=== PATIENT | female | born 1950 | race Caucasian/White ===

== ENCOUNTER 2018-11-10 07:15 | Observation (INO) | payer MEDICARE ==
[2018-11-10] MEDS ORDERED: Aspirin Chewable 81 MG TAB ONE (07:32)
[2018-11-10] MEDS ORDERED: Lidocaine 1% (PF) 30 ML VIAL ONE (07:37)
[2018-11-10] MEDS ORDERED: Heparin 10,000 UNITS/1 ML VIAL ONE (07:37)
[2018-11-10 07:41] LABS: #Basophils 0.1 thou/uL (0.0-0.2); #Eosinphils 0.1 thou/uL (0.0-0.7); #Lymphocytes 0.3 thou/uL (1.20-3.40); #Monocytes 0.3 thou/uL (0.11-0.59); #Neutrophils 3.9 thou/uL (1.40-6.50); %Basophils 1.8 % (0.0-1.0); %Eosinophils 1.2 % (0.0-10.0); %Lymphocytes 5.6 % (21.0-51.0); %Monocytes 6.5 % (0.0-10.0); Hemoglobin 12.7 g/dL (12.0-16.0); Mean Corpuscular HGB CONC 31.7 g/dL (32.0-36.0); Mean Corpuscular Hemoglobin 28.2 pg (27.0-31.0); Mean Corpuscular Volume 88.8 fL (78.0-98.0); Mean Platelet Volume 9.2 fL (7.4-10.4); Platelet Count 135 thou/uL (130-400); RBC Distribution Width 14.3 % (11.5-14.5); Red Blood Cell (RBC) Count 4.52 mill/uL (4.20-5.40); White Blood Cell (WBC) Count 4.6 thou/uL (4.8-10.8)
--- NOTE | 2018-11-10 07:52 | RAD ---
PORTABLE CHEST 1 VIEW: DATE: 11/10/2018. TIME: 7:37 a.m. HISTORY: Chest pain. FINDINGS: The heart size is borderline. No focal areas of consolidation, pneumothoraces, or large effusions ar e seen. There is no evidence of zenon pulmonary edema. POS: [facility]
[2018-11-10 08:05] LABS: ALT (SGPT) 41 U/L (8-55); AST (SGOT) 64 U/L (5-34); Albumin 3.9 g/dL (3.4-4.8); Alkaline Phosphatase 134 U/L (40-150); Anion Gap 12 mmol/L (10-20); BUN (Urea Nitrogen) 25 mg/dL (9.8-20.1); Bilirubin, Total 0.7 mg/dL (0.2-1.2); CK (CPK) 90 U/L (29-168); Calc. Creatinine Clearance 0 mL/min (70-130); Carbon Dioxide 29 mmol/L (23-31); Chloride 99 mmol/L (98-107); Estimated GFR-MDRD 65; Globulin 2.8 g/dL (2.4-3.5); Glucose 84 mg/dL (80-115); Potassium 3.3 mmol/L (3.5-5.1); Protein, Total 6.7 g/dL (6.0-8.3); Sodium 137 mmol/L (136-145)
[2018-11-10] MEDS ORDERED: Fentanyl 100 MCG/2 ML VIAL ONE (08:13)
[2018-11-10] MEDS ORDERED: Midazolam HCl 2 mg/2 ml Vial ONE (08:13)
[2018-11-10 08:25] LABS: CKMB 2.3 ng/mL (0-6.6)
[2018-11-10] MEDS ORDERED: Nitroglycerin 0.4 MG TAB (25 Tab Bottle) SL PRN (08:35)
[2018-11-10] MEDS ORDERED: Sodium Chloride 0.9% 200 ML IV PRN (08:35)
[2018-11-10] MEDS ORDERED: Sodium Chloride 0.9% 1,000 ML IV SCH (08:45)
[2018-11-10] MEDS ORDERED: Iopamidol 370 76% 100 ML VIAL ONE (09:33)
[2018-11-10 10:13] VITALS: BMI 25.5
[2018-11-10] MEDS: Acetaminophen/Codeine 30-300mg Tablet PO PRN ×3 (10:30→23:15)
--- NOTE | 2018-11-10 10:51 | HP ---
CHIEF COMPLAINT: Chest pain. HISTORY OF PRESENT ILLNESS: Ms. Fernandez is a pleasant 68-year-old white female, who comes to the hospital for chest pain. She has been having chest pain since Wednesday of this week, today is . She noticed that the pain was worse, so she decided to come in. An EKG was done and was found that she had some suggestion of ST elevation in the anterior leads with some reciprocal changes, so concern was for STEMI, so she was brought to the catheterization lab for further evaluation, where she was found to have branching disease but nothing to explain STEMI. She does have a 33 mmHg gradient across her aortic valve. On further questioning, she tells me that she has been having a cough, which had been dry. She spiked a fever two days ago to 102.1. They were concerned about her having pneumonia and that was her main concern. She has been following with Dr. Solomon at [facility] for what appears to be a valve issue, but she is not sure what her valve issue is. On my evaluation, she is pain free. PAST MEDICAL HISTORY: 1. Depression. 2. Valve condition, unclear at this time. 3. Hypertension. 4. Anxiety and depression. 5. Chronic back pain. PAST SURGICAL HISTORY: 1. Bilateral knee surgeries. 2. Right shoulder surgery. 3. Back surgery x3. 4. Bilateral eye surgery. 5. Gastric bypass. She lost about 130 pounds about 7 years ago. ALLERGIES: MORPHINE MAKES HER NAUSEATED. OUTPATIENT MEDICATIONS: Include; 1. Carvedilol 12.5 mg b.i.d. 2. Prozac 40 mg twice a day. 3. Gabapentin. 4. Tylenol 300/30 as needed for pain. SOCIAL HISTORY: Former smoker, quit about 10 years ago. Social alcohol use. No drug use. FAMILY HISTORY: Noncontributory. REVIEW OF SYSTEMS: A 12-point review of systems was done and was found to be negative unless stated in the history of present illness. PHYSICAL EXAMINATION: VITAL SIGNS: Temperature 97.2, pulse 54, respiratory rate 16, and saturating 94% on 2 L nasal cannula, and blood pressure 116/62. GENERAL: Awake, alert, and oriented x3, no distress. HEENT: Normocephalic and atraumatic. NECK: Supple. LUNGS: Clear. CARDIOVASCULAR: S1 and S2. There is a grade 3/6 systolic murmur at the right upper sternal border. ABDOMEN: Soft. EXTREMITIES: No edema. SKIN: Warm and dry. LABORATORY DATA: Laboratory work was reviewed. CBC with a white count of 4.6, hemoglobin of 12, hematocrit 40, platelet count of 135. Chemistry with a sodium 137, potassium is 3.3, BUN 25, creatinine 0.87, GFR of 65. CK-MB is 2.3, troponin I was 0.135. Albumin of 3.9. DIAGNOSTIC DATA: Chest x-ray was reviewed. No infiltrates. ASSESSMENT AND PLAN: 1. Chest pain. 2. Fever, likely upper respiratory infection. 3. Aortic stenosis by physical exam and with a gradient on heart catheterization. 4. 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 PLAN: 1. Heart catheterization revealed significant disease, but very small vessels ostial disease in the intermediate ramus, not amenable to catheter based interventions too small of an artery to submit her for bypass surgeries just for that. Would treat medically for now. 2. She did have a gradient on her aortic valve about 33 mmHg. Will get an echocardiogram to assess valve better this would not make her candidate for a valve replacement just yet, but this may be in her future. She is already being followed for this according to her. She is not sure which valve it was. 3. Most likely she is having some sort of upper respiratory infection. Chest x-ray was negative for infiltrate. She may be having a bronchitis. We will start antibiotics. Will consult [facility]. 4. We will keep her on home regimen of medications. 5. Full code. 6. Disposition, pending clinical evolution. 7. Likely home tomorrow. Job ID: [id number]
[2018-11-10 16:30] LABS: Bilirubin Negative (Negative); Blood, Urine Negative (Negative); Clarity CLEAR (Clear); Glucose, Urine (Dipstick) Negative (Negative); Leukocyte Negative (Negative); Nitrite Negative (Negative); Protein, Urine (Dipstick) Negative (Neg-Trace); Urobilinogen 0.2 mg/dL (0.2-1.0); pH, Urine 5.5 (5.0-9.0)
[2018-11-10 16:31] LABS: Bacteria/HPF None Seen HPF (None Seen); Hyaline Casts/LPF 4-6 HYALINE CAST LPF (0-3 Hyaline); Pathc Cast-AUWi Flag 1.36 (0-2.49); RBC/HPF 0-3 HPF (0-3)
[2018-11-10 16:32] LABS: Renal Epithelial None Seen HPF (0-3); Specific Gravity, Urine 1.047 (1.002-1.036); Transitional Epithelial NONE SEEN HPF (0-3)
[2018-11-10 16:34] LABS: Urine Culture Reflex No No
[2018-11-10] MEDS: Carvedilol 6.25 MG TAB PO SCH (17:17)
[2018-11-10] MEDS ORDERED: Atorvastatin Calcium 10 MG TAB PO SCH (21:00)
[2018-11-10] MEDS: Amoxicillin/Potassium Clav 875 MG TAB PO SCH (21:00)
[2018-11-10] MEDS: Oseltamivir 75 MG CAP PO SCH (21:00)
[2018-11-10] MEDS: Acetaminophen 325 MG TAB PO PRN (21:00)
[2018-11-11] MEDS: Acetaminophen 325 MG TAB PO PRN (03:53)
[2018-11-11 05:15] LABS: #Lymphocytes 0.6 thou/uL (1.20-3.40); #Monocytes 0.7 thou/uL (0.11-0.59); #Neutrophils 6.2 thou/uL (1.40-6.50); %Eosinophils 0.2 % (0.0-10.0); %Lymphocytes 7.8 % (21.0-51.0); %Monocytes 8.8 % (0.0-10.0); %Neutrophils 83.2 % (42.0-75.0); Mean Corpuscular HGB CONC 32.8 g/dL (32.0-36.0); Mean Corpuscular Hemoglobin 28.5 pg (27.0-31.0); Mean Corpuscular Volume 87.1 fL (78.0-98.0); Platelet Count 120 thou/uL (130-400); RBC Distribution Width 14.2 % (11.5-14.5); Red Blood Cell (RBC) Count 3.86 mill/uL (4.20-5.40); White Blood Cell (WBC) Count 7.4 thou/uL (4.8-10.8)
[2018-11-11 05:31] LABS: Anion Gap 13 mmol/L (10-20); BUN (Urea Nitrogen) 19 mg/dL (9.8-20.1); Calc. Creatinine Clearance 92 mL/min (70-130); Carbon Dioxide 24 mmol/L (23-31); Chloride 100 mmol/L (98-107); Estimated GFR-MDRD Greater than 90; Glucose 82 mg/dL (80-115); Potassium 3.8 mmol/L (3.5-5.1); Sodium 133 mmol/L (136-145)
[2018-11-11] MEDS ORDERED: FLUoxetine HCl 20 MG CAP PO SCH (09:00)
[2018-11-11] MEDS ORDERED: Aspirin 81 mg Enteric Coated Tablet PO SCH (09:00)
[2018-11-11] MEDS: Carvedilol 6.25 MG TAB PO SCH ×2 (09:36→17:31)
[2018-11-11] MEDS: Amoxicillin/Potassium Clav 875 MG TAB PO SCH (09:37)
[2018-11-11] MEDS: Acetaminophen/Codeine 30-300mg Tablet PO PRN (09:37)
[2018-11-11] MEDS: Oseltamivir 75 MG CAP PO SCH (09:37)
[2018-11-11 12:49] VITALS: TEMP 97.3
[2018-11-11 13:24] VITALS: BP 101/52
--- NOTE | 2018-11-11 15:04 | DIS ---
DATE OF ADMISSION: 11/10/2018 DATE OF DISCHARGE: 11/11/2018 PRIMARY DIAGNOSES: 1. Influenza type A. 2. Moderate aortic valve stenosis. SUMMARY: Ms. Fernandez is a 68-year-old white female, who came to the hospital for chest pain. She had an EKG. She does have an anterior IN, so she was taken to the catheterization lab, where she was found to have normal coronaries, just some moderate disease on branching vessel small arteries. She developed a fever, so we did a full workup including a flu, which was positive for the influenza A virus. She was started on Tamiflu. Blood cultures were negative so far. She was afebrile on the day of discharge. She is feeling much better. She denies any more chest pain, tightness, pressure. IV fluids made her feel much better. She will be discharged home on Tamiflu and p.r.n. Tylenol [id number] for fevers. Followup appointments with myself in 3 months. Over 30 minutes was spent at bedside for discharge. Job ID: [id number]
--- NOTE | 2018-11-12 16:34 | EKG ---
Test Reason : Blood Pressure : / mmHG Vent. Rate : 050 BPM Atrial Rate : 050 BPM P-R Int : 194 ms QRS Dur : 090 ms QT Int : 578 ms P-R-T Axes : 036 -18 084 degrees QTc Int : 526 ms Sinus bradycardia Left ventricular hypertrophy with repolarization abnormality Anteroseptal infarct , age undetermined Prolonged QT Abnormal ECG ST elevation V1 - V3 Biphasic T waves V1,V2 ACUTE AL / STEMI Confirmed by ALAN TRUJILLO DO ([id number]), supervising editor trailer CARLOS REINA ([id number]) on 11/12/2018 4:34:16 PM Referred By: Confirmed By:ALAN TRUJILLO DO
== END 2018-11-11 17:45 | disposition home or self-care (01) ==
LOC: ERS 07:15 → CCU 08:07 → INTOOBSV 08:07 → 2SW 08:59
PROVIDERS: ADMIT Internal Medicine Cardiovascular Disease; ATTEND Internal Medicine Cardiovascular Disease
PROC: 4A023N7 Measurement of Cardiac Sampling and Pressure, Left Heart, Percutaneous Approach (ICD-10-PCS; principal; 2018-11-10)
PROC: B2111ZZ Fluoroscopy of Multiple Coronary Arteries using Low Osmolar Contrast (ICD-10-PCS; 2018-11-10)
DX: R07.9 Chest pain, unspecified (principal); J10.1 Influenza due to other identified influenza virus with other respiratory manifestations; I25.10 Atherosclerotic heart disease of native coronary artery without angina pectoris; I35.0 Nonrheumatic aortic (valve) stenosis; F32.9 Major depressive disorder, single episode, unspecified; F41.9 Anxiety disorder, unspecified; G89.29 Other chronic pain; M54.9 Dorsalgia, unspecified; Z87.891 Personal history of nicotine dependence; Z88.5 Allergy status to narcotic agent; Z98.84 Bariatric surgery status; Z79.899 Other long term (current) drug therapy
CPT/HCPCS: 71045; 80048; 80053; 81001; 82550; 82553; 84484; 85025 ×2; 87040; 87804 ×2; 93005; 93306; 93458; 96360; 96361; 99285; C1769; G0378; 36415; 99152; J1644; J2001; J2250; J3010; Q9967

== ENCOUNTER 2018-11-19 22:56 | Inpatient (IN) | payer MEDICARE ==
[2018-11-19] MEDS ORDERED: Promethazine HCl 25 MG/ML VIAL ONE (23:42)
[2018-11-19 23:51] LABS: Hemoglobin 10.9 g/dL (12.0-16.0); Mean Corpuscular HGB CONC 33.3 g/dL (32.0-36.0); Mean Corpuscular Hemoglobin 28.3 pg (27.0-31.0); Mean Platelet Volume 8.3 fL (7.4-10.4); Platelet Count 323 thou/uL (130-400); RBC Distribution Width 14.1 % (11.5-14.5); Red Blood Cell (RBC) Count 3.86 mill/uL (4.20-5.40); White Blood Cell (WBC) Count 16.8 thou/uL (4.8-10.8)
[2018-11-20 00:12] LABS: ALT (SGPT) 21 U/L (8-55); AST (SGOT) 26 U/L (5-34); Albumin 2.9 g/dL (3.4-4.8); Alkaline Phosphatase 143 U/L (40-150); Anion Gap 9 mmol/L (10-20); BUN (Urea Nitrogen) 23 mg/dL (9.8-20.1); Band 12 % (5-11); Bilirubin, Total 1.1 mg/dL (0.2-1.2); CK (CPK) 26 U/L (29-168); Calc. Creatinine Clearance 0 mL/min (70-130); Calcium 8.8 mg/dL (7.8-10.44); Carbon Dioxide 35 mmol/L (23-31); Chloride 94 mmol/L (98-107); Estimated GFR-MDRD 88; Globulin 3.6 g/dL (2.4-3.5); Glucose 109 mg/dL (80-115); Hypochromia SLIGHT = 6-15 cells (100X) (0-5/hpf); Lipase 5 U/L (8-78); Lymphocytes 4 % (21-51); MDiff Complete? YES; Monocytes 4 % (0-10); Neutrophil 80 % (42-75); Platelet Morphology Comment Appears Adequate; Protein, Total 6.5 g/dL (6.0-8.3); Sodium 135 mmol/L (136-145)
[2018-11-20 00:22] LABS: Potassium 2.7 mmol/L (3.5-5.1)
[2018-11-20] MEDS ORDERED: Pot Chloride/Pot Bicarb/Cit Ac 25 mEq Effervescent Tablet ONE (00:35)
[2018-11-20] MEDS ORDERED: Potassium Chloride 20 MEQ TAB ONE (01:04)
[2018-11-20] MEDS ORDERED: Cefepime 2 GM VIAL ONE (01:33)
[2018-11-20] MEDS ORDERED: Sodium Chloride 0.9% 100 ML ONE (01:34)
[2018-11-20] MEDS ORDERED: Furosemide 40 MG/4 ML VIAL ONE (01:34)
[2018-11-20 02:06] LABS: Bilirubin Negative (Negative); Blood, Urine Negative (Negative); Clarity CLEAR (Clear); Glucose, Urine (Dipstick) Negative (Negative); Leukocyte Moderate (Negative); Nitrite Negative (Negative); Protein, Urine (Dipstick) Negative (Neg-Trace); Specific Gravity, Urine 1.026 (1.002-1.036)
[2018-11-20 02:08] LABS: Bacteria/HPF 3+ HPF (None Seen); Hyaline Casts/LPF 0-3 HYALINE CAST LPF (0-3 Hyaline); RBC/HPF 0-3 HPF (0-3); Squamous Epithelial 0-3 HPF (0-3)
[2018-11-20] MEDS ORDERED: Zolpidem Tartrate 5 MG TAB PO PRN (02:40)
--- NOTE | 2018-11-20 02:56 | PDOC.EVN ---
Event Note - Event Note Event Note: [id number]&P [id number]
[2018-11-20] MEDS: HYDROcodone/Acetaminophen 5/325 mg Tablet PO PRN ×4 (03:56→20:56)
[2018-11-20] MEDS: Guaifenesin DM 100-10/5 ML UDCUP PO PRN (03:56)
[2018-11-20] MEDS ORDERED: guaiFENesin/DM ER PO PRN (04:14)
[2018-11-20] MEDS ORDERED: Chloraseptic Spray 180 ml Bottle PO PRN (04:14)
[2018-11-20] MEDS: Ondansetron PF 4 MG/2 ML Vial IVP PRN ×3 (04:38→20:55)
--- NOTE | 2018-11-20 04:38 | HP ---
ADMITTING DIAGNOSES: Frequent cough, fevers and chills. HISTORY OF PRESENT ILLNESS: This is a 68-year-old female stating that for the past 3 weeks she is having severe significant cough and chills. The patient was admitted here earlier in December and followed us in October. Also, had a cardiac catheterization procedure done by Cardiology, was found to have nonobstructive disease. The patient's lab work at this point in time of admission did show high white count. The patient states that she does have high fevers, also is a nonsmoker. CT scan of note in the ER was done, was found to have bilateral pneumonia in the lobes as well as significant infiltrates. The patient denies any nausea, vomiting, diarrhea, or constipation, but does attest to chest pain, fevers, chills, and shortness of breath. The patient states that walking and ambulation and any exertional activity does make her symptoms worse. The patient otherwise has no sick contacts. No one around her is feeling ill. She has not traveled recently. ALLERGIES: TO MORPHINE, DOES NOT KNOW WHAT HAPPENED WHEN SHE GETS MORPHINE. PAST MEDICAL HISTORY: Positive for hypertension, neuropathy as well as hyperlipidemia. REVIEW OF SYSTEMS: All systems reviewed. Pertinent positive in HPI, otherwise negative. FAMILY HISTORY: Diabetes and high blood pressure. SOCIAL HISTORY: Nondrinker. Social smoker. PHYSICAL EXAMINATION: VITAL SIGNS: Blood pressure was 148/88, heart rate of 100, temperature of 100, O2 saturations 98% on 2 L nasal cannula, respiratory rate of 20. GENERAL: The patient lying in bed with frequent bouts of cough. HEENT: Pupils are equal, round, and reactive to light and accommodation. Oral cavity moist and pink. NECK: Nontender, mobile. Thyroid appreciated. PULMONARY: Bilateral inspiratory coarse breath sounds. Mild increase in respiratory rate. No increase in AP diameter. CARDIOVASCULAR: Sinus tachycardia. S1 and S2. No murmurs, rubs, or gallops appreciated. ABDOMEN: Positive bowel sounds. Soft, nondistended, nontender, EXTREMITIES: 2+ peripheral pulses noted. No cyanosis, clubbing, or edema noted. NEUROLOGIC: Cranial nerves 2 through 12 intact. No loss of motor or sensory function. LABORATORY DATA: CBC shows elevated white count of 16.8. Elevated D-dimer. Basic metabolic panel shows sodium 135, potassium 2.7, chloride 94, bicarb 35, and BUN of 23 with an elevated brain natriuretic peptide of 1543. Urinalysis negative for any acute pathology. ASSESSMENT: 1. Pneumonia. 2. Chest pain. 3. Cough. 4. Hypertension. 5. Hyperlipidemia. PLAN: At this point in time, we will admit the patient to Internal Medicine Team. Start the patient on antibiotics for community-acquired pneumonia with Zithromax and Rocephin. The patient wishes to remain a full code. We will consult Cardiology and also perform an echocardiogram. Case and plan discussed with the patient and her at length. They understand and agreed with this plan. Job ID: [id number]
[2018-11-20] MEDS: cefTRIAXone\\ROCEPHIN 1 GM in Sodium Chloride 0.9% 100 ML IVPB SCH (04:47)
[2018-11-20 05:56] LABS: Anion Gap 14 mmol/L (10-20); BUN (Urea Nitrogen) 19 mg/dL (9.8-20.1); Calc. Creatinine Clearance 86 mL/min (70-130); Calcium 8.4 mg/dL (7.8-10.44); Carbon Dioxide 30 mmol/L (23-31); Chloride 93 mmol/L (98-107); Estimated GFR-MDRD 89; Glucose 154 mg/dL (80-115); Sodium 134 mmol/L (136-145)
[2018-11-20 05:57] LABS: Potassium 2.8 mmol/L (3.5-5.1)
[2018-11-20 06:09] LABS: Band 11 % (5-11); Hemoglobin 10.5 g/dL (12.0-16.0); Lymphocytes 8 % (21-51); MDiff Complete? YES; Mean Corpuscular HGB CONC 32.9 g/dL (32.0-36.0); Mean Corpuscular Hemoglobin 28.4 pg (27.0-31.0); Mean Corpuscular Volume 86.4 fL (78.0-98.0); Mean Platelet Volume 8.7 fL (7.4-10.4); Monocytes 5 % (0-10); Neutrophil 76 % (42-75); Platelet Count 294 thou/uL (130-400); Platelet Morphology Comment Appears Adequate; RBC Distribution Width 14.1 % (11.5-14.5); RBC Morphology Normal; Red Blood Cell (RBC) Count 3.68 mill/uL (4.20-5.40); White Blood Cell (WBC) Count 15.6 thou/uL (4.8-10.8)
[2018-11-20] MEDS: Azithromycin 500 MG in Sodium Chloride 0.9% 250 ML 250 ML IVPB SCH (06:42)
[2018-11-20] MEDS: Enoxaparin Sodium 40 MG/0.4 ML SYRINGE SC SCH (08:26)
[2018-11-20] MEDS: Benzonatate 100 MG CAP PO PRN ×3 (08:27→20:55)
--- NOTE | 2018-11-20 09:33 | RAD ---
FRONTAL RADIOGRAPH CHEST: DATE: 11/19/2018. COMPARISON: 11/10/2018. HISTORY: Weakness, dizziness, and syncope. FINDINGS: New coarse perihilar interstitial prominence is noted. New focal opacity in left base with blunting of costophrenic angle. New coarse ground-glass opacity in right lung base. No pneumothorax. IMPRESSION: There are new coarse areas of increased density in the perihilar regions and lung bases, left greater than right. Findings suggest multifocal infectious pneumonitis/aspiration. Pulmonary edema is a po ssibility as well. Recommend followup imaging of the chest following treatment to document resolutio n. POS: [facility]
--- NOTE | 2018-11-20 09:40 | CT ---
CTA THORAX UTILIZING IV CONTRAST AND 3D REFORMATTED IMAGING: INDICATIONS: Chest pain and shortness of breath. COMPARISON: None. FINDINGS: No central or segment pulmonary embolus is evident. There are patchy perihilar areas of air space op acity, reticulonodular areas, and zenon consolidation within both lungs, but most severely affecting the left lower lobe. There are prominent mitral annular and coronary artery calcifications. There i s extensive adenopathy of the hilar region of the mediastinum. No axillary lymphadenopathy is eviden t. The visualized adrenal glands appear within normal limits. The spleen measures 11.2 cm, which is within normal limits. The gallbladder is surgically absent. No focal hepatic lesion is evident. N o definite acute osseous abnormality is noted. IMPRESSION: 1. No central or segmental pulmonary embolus. 2. Extensive bilateral perihilar parenchymal opacities, some of which are reticulonodular in morphol ogical pattern, as well as areas of zenon consolidation. Overall, the findings are most suspicious f or an infectious etiology, such as extensive bronchopneumonia. This can also be seen with inflammato ry etiologies, such as prominent sarcoidosis. Atypical considerations include lymphoma. 3. Extensive adenopathy of the mediastinum and hilar regions bilaterally. 4. Post surgical changes of prior gastric bypass and prior cholecystectomy. 5. Other findings as above. POS: [facility]
[2018-11-20] MEDS ORDERED: Potassium Chloride 20 MEQ TAB PO SCH ×2 (12:45→20:00)
[2018-11-20] MEDS ORDERED: Meloxicam 15 MG TAB PO PRN (13:43)
[2018-11-20] MEDS ORDERED: TYLENOL WITH CODEINE PO PRN (13:43)
[2018-11-20] MEDS ORDERED: pyridOXINE 50 MG (B6) TAB PO PRN (13:57)
[2018-11-20] MEDS ORDERED: Gabapentin 300 MG CAP PO PRN (14:00)
[2018-11-20] MEDS ORDERED: ISOVUE-370 76%-LOCM 1 ML ONE (14:02)
--- NOTE | 2018-11-20 15:57 | CON ---
DATE OF CONSULTATION: PRIMARY PULMONARY FUNCTION TECHNICIAN: Darren Hodgson MD. REASON FOR CARDIOLOGY CONSULT: Decompensated congestive heart failure. HISTORY OF PRESENT ILLNESS: Ms. Fernandez is a 68-year-old female with significant history of several back and knee surgery, status post cardiac catheterization with 80% of stenosis in the 1st diagonal vessel, but no further intervention at this time because of the vessel is very small and 30% of stenosis in the proximal LAD. When the patient was here last week, the patient underwent cardiac catheterization for chest pain and also the patient was found to have influenza A. She finished Tamiflu when she was discharged from the hospital. However, since then, she continued having severe cough, fever, dizziness, soreness to her whole chest secondary to the severe cough. She continued having symptoms with worsening of fatigue and weakness. Due to those reasons, the patient presents to the emergency department for further evaluation and treatment and she found to have pneumonia and also patient's BNP was elevated to 1543. For those reasons, a cardiac consult was ordered. The patient had echocardiogram done on November 11, 2018 with EF of 60% to 65%, mild left ventricular hypertrophy, mildly dilated left atrium, mild to moderate mitral valve regurgitation, moderate tricuspid regurgitation, mild pulmonary valve regurgitation, and moderate aortic valve stenosis with SCARLET of 1.56 cm squared and mean gradient of 33 mmHg. At this moment, the patient continued having severe cough with soreness at the chest secondary to the cough. Otherwise, the patient denied dizziness, lightheadedness, numbness to the left arm, or any other cardiac complaints. PAST MEDICAL HISTORY: Hypertension, hyperlipidemia. PAST SURGICAL HISTORY: Gastric bypass in 2011, cholecystectomy, knee replacements x2, back surgery, and neck surgery. FAMILY HISTORY: The patient is adopted, so there is no family history to obtain. SOCIAL HISTORY: The patient is a . She had 3 children, who is living well. The patient is ex-smoker, quit in 2001. She drinks alcohol once a month most. She denies illicit drug abuse. She drinks 2 cups of coffee a day. She drinks full quart of fluid a day. When the weather is good, she usually bicycle out 30-45 minutes every day without any cardiac complaints. ALLERGIES: SHE IS ALLERGIC TO MORPHINE, THAT MEDICINE MAKES HER VERY GROGGY, SO SHE DOES NOT WANT TO TAKE. HOME MEDICATIONS: 1. Tylenol No. 4 one tablet every 12 hours. 2. Gabapentin 600 mg every 6 hours as needed. 3. Coreg (carvedilol) 12.5 mg twice a day. 4. Fluoxetine 40 mg twice a day. 5. Meloxicam 15 mg every 6 hours as needed, then 15 mg once a day. 6. Melatonin 5 mg once a day as needed. 7. Magnesium 500 mg once a day. 8. Biotin 89705 mcg once a day. REVIEW OF SYSTEMS: A 12-point review of systems negative unless otherwise mentioned in the HPI. PHYSICAL EXAMINATION: VITAL SIGNS: Blood pressure 108/58, temperature 98.1, pulse is 66, sinus rhythm , respiratory rate 17, O2 saturation 97% on room air. GENERAL: The patient is alert and oriented x4. The patient is in no acute distress . HEAD: Normocephalic, atraumatic. EYES: Extraocular muscle movement intact. ENT/MOUTH: Oral and nasal mucosa moist without lesion. NECK: Supple. Normal range of motion. No JVD. PULMONARY: Very coarse bilaterally, but diminished at the bases. CARDIOVASCULAR: Regular rate and rhythm. Normal S1, S2. There is no S3, no S4. There are significant murmurs at the bilateral mediastinal border and the apex side. 2+ pulses in the bilateral upper and lower extremities. No edema. ABDOMEN: Soft, nontender. No mass to palpitate. Bowel sounds are present. MUSCULOSKELETAL: The patient is able to move all extremities. The patient denied claudication. SKIN: Warm and dry. No lesion, rash, or erythema noted. PSYCHIATRIC: The patient's mood is appropriate. NEUROLOGIC: The patient is alert and oriented x4, nonfocal. LABORATORY DATA: WBC 15.6, hemoglobin 10.5, platelet 294. D-dimer 2.2. Sodium 134, potassium 2.8, BUN at 19, creatinine 0.66. Thoracic CT scan was done due to the elevated D-dimer, which shows no pulmonary embolism. The patient's chest x- ray shows a positive pneumonia. ASSESSMENT AND PLAN: 1. Acute on diastolic dysfunction. The patient's BNP is elevated to more than 1500. The patient's respiratory condition is stable at this moment with room air. She does not have edema in the lower extremity or abdomen bloated at this moment. She is on any diuretic at this moment. Once the patient's vital signs are stable, we would like to start beta-ester and HONEY inhibitor for this patient for diastolic dysfunction. At this moment, the patient is stable. 2. Pneumonia, which is managed by the primary care doctor. She is on IV antibiotic at this moment. 3. Coronary artery disease with a stenosis in the first diagonal. The patient is asymptomatic. EKG has not changed any ST-segment or T-wave inversions. We would like to start the aspirin for this patient. Once the patient's vital signs are stable, we would like to start the carvedilol and beta ester for this patient. 4. Hypertension. The patient's blood pressure is stable without any blood pressure medication at this moment. We would like to continue to monitor. 5. Hyperlipidemia. The patient's cholesterol is stable. The patient is not on any cholesterol medication at this moment. 6. Hypokalemia. The patient's potassium level was low today, 40 mEq of potassium supplement was given to the patient today. Thank you very much for Cardiology Service to participate in the care of this patient. We will follow along the patient's care team and make further recommendations as appropriate. Job ID: [id number] IDALIA
--- NOTE | 2018-11-20 18:59 | CON ---
DATE OF CONSULTATION: 11/20/2018 INDICATION FOR CONSULTATION: Increasing shortness of breath and cough, which is felt to be possibly decompensated congestive heart failure. She also has history of aortic valve stenosis. HISTORY OF PRESENT ILLNESS: This very pleasant 68-year-old female was here recently in the hospital where she underwent a cardiac catheterization. She was found to have significant stenosis in the small diagonal branch, unable to intervened upon this vessel due to a very small vessel and she did have some mild stenosis noted in the proximal left anterior descending artery, but no other significant flow-limiting disease was noted. She does have a normal ejection fraction by echocardiogram. She also has been found to have some aortic valve stenosis with valve area of 1.56, however, this is being followed and she has left ventricular hypertrophy. She was actually discharged, previously was found to have influenza A. She went to wedding and since then she has been continued to decompensate since that time with increasing coughing. Due to the fact that she is unable to breathe and her said she actually is getting exhausted and he thinks that she may have had a syncopal episode while sitting on the side of the bed, but he was able to arouse her simply by calling her name. The one time she was actually out for about a minute and a half and likely this was due to just being grossly fatigued due to the excessive coughing. At this time, she is feeling a little bit better, but still continues to cough. She has significant rhonchi bilaterally and chest x-ray did show patchy infiltrates compared to previous chest x-ray done less than 10 days ago. At this time, she denied any chest pain. PHYSICAL EXAMINATION: GENERAL: Reveals a well-developed, well-nourished female, who does appear to be fatigued due to increasing coughing. She did have some coughing during the evaluation. VITAL SIGNS: Show blood pressure 108/58. She is afebrile. Respiratory rate is 17, heart rate is in the 60s and shows a sinus rhythm. HEENT: Shows the head to be normocephalic and atraumatic. Carotid pulses are present. I cannot hear bruits. CHEST: Has diffuse rhonchi bilaterally. CARDIOVASCULAR: Revealed a regular rate and rhythm. She has a harsh systolic murmur over the entire precordium compatible with aortic valve stenosis and possible mitral valve regurgitation. There were no heaves or thrills noted. ABDOMEN: Soft and nontender. Positive bowel sounds are present. EXTREMITIES: Show no clubbing, cyanosis, or edema. Pedal pulses are decreased. NEUROLOGIC: The patient appears to be intact. SKIN: She has multiple tattoos on the skin with the skin is warm and dry. LABORATORY DATA: Shows a WBC of 15.6 and yesterday was 16.8, hemoglobin 10.5, hematocrit 31.8, platelet count is 294. Her potassium level was low at 2.8, sodium was 134, chloride was 93, blood sugar was 154, BUN was 19 with creatinine of 0.66. Her BNP was elevated at 1543. Her EKG shows a sinus rhythm with no acute changes. She does have evidence of left ventricular hypertrophy and nonspecific ST-segment changes, most likely due to the left ventricular hypertrophy. IMPRESSION: 1. Possible bilateral pneumonia. She has been treated with antibiotics. Would agree with this and she will need something for her cough. She seems to be slightly improved with the medicines that she has already been given. 2. Mild coronary artery disease. This appears to be stable at this time. I do not have any indication that she has had any progression of this and there is no indication that she has had any myocardial infarction. The cardiac enzymes are unremarkable. 3. Aortic valve stenosis, which is still moderate in degree and does not appear to be an issue at this time. 4. Left ventricular hypertrophy. I would continue to treat her medically. 5. Elevated BNP, which may be due to a multitude of factors including possible right-sided failure associated with her pneumonia or elevated right-sided pressures, continued coughing, but she does have a normal systolic ejection fraction by previous echocardiogram. I reviewed her medications. At this time, I would agree with the present medications. We will continue her antibiotics. We will be more than happy to continue to follow the patient with you, but at this time, it seems her worst problem is a pulmonary issue with what appears to be possible bilateral pneumonia. Job ID: [id number]
[2018-11-20] MEDS: Melatonin 3 MG TAB PO PRN (20:55)
[2018-11-20] MEDS: Carvedilol 6.25 MG TAB PO SCH (20:57)
[2018-11-21 01:28] LABS: Legionella Urinary Ag Negative (Negative); Strep pneumo Urine Ag NEGATIVE (NEGATIVE)
[2018-11-21] MEDS: cefTRIAXone\\ROCEPHIN 1 GM in Sodium Chloride 0.9% 100 ML IVPB SCH (04:08)
[2018-11-21 05:16] LABS: #Eosinphils 0.2 thou/uL (0.0-0.7); #Lymphocytes 0.7 thou/uL (1.20-3.40); #Monocytes 1.4 thou/uL (0.11-0.59); #Neutrophils 16.6 thou/uL (1.40-6.50); %Basophils 0.1 % (0.0-1.0); %Eosinophils 0.9 % (0.0-10.0); %Lymphocytes 3.9 % (21.0-51.0); %Monocytes 7.4 % (0.0-10.0); %Neutrophils 87.7 % (42.0-75.0); Hemoglobin 10.6 g/dL (12.0-16.0); Mean Corpuscular HGB CONC 31.8 g/dL (32.0-36.0); Mean Corpuscular Hemoglobin 27.7 pg (27.0-31.0); Mean Corpuscular Volume 87.3 fL (78.0-98.0); Mean Platelet Volume 8.5 fL (7.4-10.4); Platelet Count 343 thou/uL (130-400); RBC Distribution Width 14.2 % (11.5-14.5); Red Blood Cell (RBC) Count 3.83 mill/uL (4.20-5.40); White Blood Cell (WBC) Count 18.9 thou/uL (4.8-10.8)
[2018-11-21] MEDS: Azithromycin 500 MG in Sodium Chloride 0.9% 250 ML 250 ML IVPB SCH (05:21)
[2018-11-21 05:33] LABS: Anion Gap 9 mmol/L (10-20); BUN (Urea Nitrogen) 23 mg/dL (9.8-20.1); Calc. Creatinine Clearance 98 mL/min (70-130); Calcium 8.8 mg/dL (7.8-10.44); Carbon Dioxide 33 mmol/L (23-31); Chloride 96 mmol/L (98-107); Estimated GFR-MDRD Greater than 90; Glucose 117 mg/dL (80-115); Potassium 4.2 mmol/L (3.5-5.1); Sodium 134 mmol/L (136-145)
[2018-11-21] MEDS: Ondansetron PF 4 MG/2 ML Vial IVP PRN (10:11)
[2018-11-21] MEDS: HYDROcodone/Acetaminophen 5/325 mg Tablet PO PRN ×2 (10:12→18:24)
[2018-11-21] MEDS: Enoxaparin Sodium 40 MG/0.4 ML SYRINGE SC SCH (10:13)
[2018-11-21] MEDS: Benzonatate 100 MG CAP PO PRN ×2 (10:13→18:24)
[2018-11-21] MEDS: Carvedilol 6.25 MG TAB PO SCH ×2 (10:14→21:15)
[2018-11-21] MEDS: FLUoxetine HCl 20 MG CAP PO SCH ×2 (10:21→21:15)
[2018-11-21] MEDS: Aspirin 81 mg Enteric Coated Tablet PO SCH (10:21)
[2018-11-21] MEDS: Magnesium Oxide 250 MG TAB PO SCH (10:22)
[2018-11-21] MEDS: Zinc Sulfate 220 MG CAP PO SCH (10:35)
[2018-11-21] MEDS ORDERED: Bacteriostatic Water 30 ML VIAL FS PRN (11:40)
--- NOTE | 2018-11-21 12:02 | PRG ---
DATE OF SERVICE: 11/21/2018 SUBJECTIVE: The patient is seen and examined at the bedside. She is coughing up quite a bit of greenish and yellowish phlegm. Appetite is fair. OBJECTIVE: VITAL SIGNS: Blood pressure is 147/72, temperature is 98.2, maximal temperature is 100.1 yesterday, respiratory rate is 20, O2 saturation is 98% on 2 L by nasal cannula. HEENT: Her head is atraumatic and normocephalic. Eyes are PERRLA. Sclerae are nonicteric. Oral mucosa is moist. NECK: Supple. LUNGS: Bilateral rales and crackles present at both lungs. No wheezing. HEART: S1, S2. Regular. Systolic murmur 3/6 in all precordium. ABDOMEN: Soft, nontender. Bowel sounds are present. No organomegaly. EXTREMITIES: No clubbing, cyanosis, or edema. NEUROLOGICAL: She follows my commands. There is no any sensory or motor deficit present. Cranial nerves are intact. LABORATORY DATA: Labs showed white count of 18.9, hemoglobin 10.6, hematocrit 33.4, neutrophils 87.7. Sodium of 134, potassium 4.2, chloride 96, CO2 of 33, BUN 23, creatinine 0.58. Urine Legionella antigen negative and urine Strep pneumoniae negative. Microbiology; Gram stain on sputum showed 0-5 epithelial cells, moderate WBCs and no organisms seen. Urine culture is growing Proteus mirabilis, which is pansensitive. IMPRESSION: 1. Bronchopneumonia. 2. corrected with supplementation. 3. Possible diastolic dysfunction, although the echocardiogram did not show any systolic or diastolic dysfunction, but her BNP was significantly elevated. 4. Mild coronary artery disease. Apparently, the patient was seen by a college or university registrar last night and there was no any additional further recommendation at this point. 5. Aortic valve stenosis, moderate in degree. 6. Hyperlipidemia. 7. Hypertension. PLAN: Plan is to add some steroids since she is having a lot of rales and rhonchi in both lungs. Add some DuoNeb which should help to get rid of her secretions and continue her both antibiotics and her potassium tomorrow morning and CBC. Job ID: [id number]
[2018-11-21] MEDS: methylPREDNISolone Sod Succ 40 MG VIAL IVP SCH ×2 (14:41→21:15)
[2018-11-22 05:43] LABS: #Lymphocytes 0.5 thou/uL (1.20-3.40); #Monocytes 0.3 thou/uL (0.11-0.59); #Neutrophils 11.8 thou/uL (1.40-6.50); %Eosinophils 0.4 % (0.0-10.0); %Lymphocytes 4.3 % (21.0-51.0); %Neutrophils 93.3 % (42.0-75.0); Hemoglobin 11.2 g/dL (12.0-16.0); Mean Corpuscular Hemoglobin 28.1 pg (27.0-31.0); Mean Corpuscular Volume 87.7 fL (78.0-98.0); Mean Platelet Volume 8.7 fL (7.4-10.4); Platelet Count 364 thou/uL (130-400); RBC Distribution Width 14.4 % (11.5-14.5); Red Blood Cell (RBC) Count 3.98 mill/uL (4.20-5.40); White Blood Cell (WBC) Count 12.6 thou/uL (4.8-10.8)
[2018-11-22] MEDS: cefTRIAXone\\ROCEPHIN 1 GM in Sodium Chloride 0.9% 100 ML IVPB SCH (05:53)
[2018-11-22 06:01] LABS: Anion Gap 10 mmol/L (10-20); BUN (Urea Nitrogen) 19 mg/dL (9.8-20.1); Calc. Creatinine Clearance 101 mL/min (70-130); Carbon Dioxide 32 mmol/L (23-31); Chloride 96 mmol/L (98-107); Estimated GFR-MDRD Greater than 90; Glucose 151 mg/dL (80-115); Potassium 4.3 mmol/L (3.5-5.1); Sodium 134 mmol/L (136-145)
[2018-11-22] MEDS: HYDROcodone/Acetaminophen 5/325 mg Tablet PO PRN ×3 (06:51→20:14)
[2018-11-22] MEDS: methylPREDNISolone Sod Succ 40 MG VIAL IVP SCH (06:52)
[2018-11-22] MEDS: Azithromycin 500 MG in Sodium Chloride 0.9% 250 ML 250 ML IVPB SCH (06:53)
--- NOTE | 2018-11-22 09:10 | PDOC.CTH ---
Cardiology Progress Note - Subjective DOS 11/21/18 Late entry. She is doing well. No chest pain, tightness, pressure. - Objective Vital Signs Temp Pulse Resp BP BP Pulse Ox 11/22/18 08:07 97.7 F 72 18 136/63 97 11/22/18 06:28 73 16 11/22/18 04:00 97.2 F L 67 19 173/78 H 95 11/22/18 00:00 67 18 11/21/18 21:15 135/63 Admit Weight 144 lb 11.2 oz Weight 144 lb 11.2 oz 11/21/18 11/22/18 11/23/18 06:59 06:59 06:59 Intake Total 1350 870 Output Total 1200 Balance 150 870 - Physical Examination General/Neuro: alert & oriented x3, NAD Neck: no JVD present Lungs: unlabored respirations Heart: RRR Abdomen: NT/ND Extremities: other: (no edema) - Telemetry Telemetry Rhythm: NSR - Labs Result Diagrams: 11/22/18 04:39 11/22/18 04:39 Troponin/CKMB Troponin I 0.024 ng/mL (< 0.028) 11/19/18 23:35 - Assessment/Plan 1. Influenza A 2. Normal coronaries 3. Aortic stenosis, moderate. PLAN: - CV stable. - Will Sign off. Please call with any questions. - Follow up in the office in 3 months.
[2018-11-22] MEDS: Carvedilol 6.25 MG TAB PO SCH ×2 (09:31→20:14)
[2018-11-22] MEDS: Aspirin 81 mg Enteric Coated Tablet PO SCH (09:31)
[2018-11-22] MEDS: FLUoxetine HCl 20 MG CAP PO SCH ×2 (09:32→20:14)
[2018-11-22] MEDS: Zinc Sulfate 220 MG CAP PO SCH (09:32)
[2018-11-22] MEDS: Magnesium Oxide 250 MG TAB PO SCH (09:32)
[2018-11-22] MEDS: Enoxaparin Sodium 40 MG/0.4 ML SYRINGE SC SCH (09:32)
--- NOTE | 2018-11-22 10:52 | PQF ---
DATE: 11-22-18 ATTN: DR. CAROLINA COLON Please exercise your independent, professional judgment in responding to the clarification form. Clinical indicators are provided on the bottom of this form for your review Please check appropriate box(es): [ ] Sepsis due to: (Pna, etc.) [ ] SIRS due to non-infectious process (please specify etiology) [ ] with organ dysfunction [ ] without organ dysfunction [ ] Severe sepsis with acute organ dysfunction of: (Examples: Heart Failure, other) [ ] Localized infection without sepsis [ x ] Other diagnosis ___Bronchopneumonia [ ] Unable to determine In addition, please specify: Present on Admission (POA): [ x ] Yes [ ] No [ ] Unable to determine For continuity of documentation, please document condition throughout progress notes and discharge summary. Thank You. CLINICAL INDICATORS - SIGNS / SYMPTOMS / LABS ER: ASSOCIATED WITH CHILLS, BP: 92/50, ER DX: NEW ONSET CHF, BILATERAL PNEUMONIA ( POST INFLUENZA), HYPOKALEMIA H&P: 11-20-18: FEVERS AND CHILLS, ASSESSMENT: PNEUMONIA, CP, COUGH, HTN, HYPERLIPIDEMIA WBC: 11-19-18: 16.8 11-20-18: 15.6 11-21-18: 18.9 11-22-18: 12.6 BANDS: 11-19-18: 12 BP: ER: 92/50, 11-20-18: 104/47 RR: ER: 24, 22 TEMP: 11-20-18: 100.1 Hyperglycemia in absence of diabetes mellitus: 11-20-18: 154 : 117 : 151 RISK FACTORS: H&P: 11-20-18: FEVERS AND CHILLS, ASSESSMENT: PNEUMONIA, CP, COUGH, HTN, HYPERLIPIDEMIA TREATMENTS: ER: IVF NS, VANCOMYCIN, CEFEPIME (This form is maintained as a part of the permanent medical record) 2014 [employer] All Rights Reserved [email or web address] [email or web address] Office: [phone] [facility]
--- NOTE | 2018-11-22 13:25 | PRG ---
DATE OF SERVICE: 11/22/2018 SUBJECTIVE: The patient is seen and examined at the bedside. She is feeling somewhat better, although she is quite exhausted and still coughs a lot. Her appetite is so-so. OBJECTIVE: VITAL SIGNS: Blood pressure is 145/65, pulse is 66, temperature is 97.3, respiratory rate is 20, and O2 saturation is 96% on room air. HEENT: Head is atraumatic and normocephalic. Eyes are PERRLA. Sclerae are nonicteric. Oral mucosa is moist. NECK: Supple. LUNGS: Bilateral rales with few wheezes present. HEART: S1 and S2 normal. No S3. No S4. There is a systolic murmur 3/6 in the right upper sternal border. ABDOMEN: Soft, nontender. Bowel sounds are present. EXTREMITIES: No clubbing, cyanosis, or edema. NEUROLOGICAL: She is alert and oriented x4. There is no any motor or sensory deficits present. Cranial nerves are intact. LABORATORY DATA: Labs showed white count of 12.5, hemoglobin of 11.2, hematocrit 34.9, platelet count is 364,000. Sodium of 134, potassium 4.3, chloride 96, CO2 of 32, BUN 19, creatinine 0.56. Glycemia is ranging from 117-154, calcium 9.0. MICROBIOLOGY: Respiratory culture shows presumptive Haemophilus species and presumptive Joan albicans with urine proteus mirabilis, which is pansensitive and influenza negative A and B antigen. IMPRESSION: 1. Bronchopneumonia with positive sputum cultures for Haemophilus and presumptive Joan. 2. Aortic valve stenosis, moderate in degree. 3. Mild coronary artery disease. 4. Hyperlipidemia. 5. Hypertension. 6. Vitamin B12 deficiency per patient's history, is requesting vitamin B12 injections. PLAN: Plan is to check her vitamin B12 level first before making decision about replacement [facility]. Continue DuoNeb. Stop steroids since there is some Joan albicans presumptive growth and increased ambulation today. There is some presumptive Joan albicans growth in her sputum and start her on some Diflucan. Job ID: [id number]
[2018-11-22] MEDS: Benzonatate 100 MG CAP PO PRN (20:14)
[2018-11-22] MEDS: Ondansetron PF 4 MG/2 ML Vial IVP PRN (22:12)
[2018-11-23] MEDS: Guaifenesin DM 100-10/5 ML UDCUP PO PRN (02:06)
[2018-11-23] MEDS: HYDROcodone/Acetaminophen 5/325 mg Tablet PO PRN ×3 (02:09→20:26)
[2018-11-23] MEDS: cefTRIAXone\\ROCEPHIN 1 GM in Sodium Chloride 0.9% 100 ML IVPB SCH (05:01)
[2018-11-23] MEDS ORDERED: Fluconazole 100 MG TAB PO SCH (09:00)
[2018-11-23] MEDS: FLUoxetine HCl 20 MG CAP PO SCH ×2 (09:42→20:26)
[2018-11-23] MEDS: Magnesium Oxide 250 MG TAB PO SCH (09:42)
[2018-11-23] MEDS: Enoxaparin Sodium 40 MG/0.4 ML SYRINGE SC SCH (09:43)
[2018-11-23] MEDS: Aspirin 81 mg Enteric Coated Tablet PO SCH (09:43)
[2018-11-23] MEDS: Multivit, Chewable SF 1 TAB PO SCH (09:43)
[2018-11-23] MEDS: Carvedilol 6.25 MG TAB PO SCH ×2 (09:43→20:26)
[2018-11-23] MEDS: Zinc Sulfate 220 MG CAP PO SCH (09:43)
--- NOTE | 2018-11-23 11:20 | PRG ---
DATE OF SERVICE: 11/23/2018 SUBJECTIVE: The patient is seen and examined at the bedside. She is feeling very fatigued and she has a lot of coughing spells, which elevated her blood pressure and she feels quite bad despite of all this treatment she received so far. OBJECTIVE: VITAL SIGNS: Blood pressure is 136/91, pulse is 76, temperature is 98.3, respiratory rate is 18, O2 saturation is 93% on room air. HEENT: Her head is atraumatic and normocephalic. Eyes are PERRLA. Sclerae is nonicteric. Conjunctivae palish. Oral mucosa is a moist. NECK: Supple. LUNGS: Bilateral rales present. No wheezing. HEART: S1, S2 normal. No S3. No S4. ABDOMEN: Soft, nontender, nondistended. EXTREMITIES: No clubbing, cyanosis, or edema. NEUROLOGICAL EXAMINATION: She is alert and oriented x4. There is no any motor or sensory deficits present. Cranial nerves are intact. LABORATORY DATA: Vitamin B12 level is greater than 2000. sputum culture is growing Haemophilus influenzae moderate amount and the presumptive Joan albicans. Urine culture, as before, Proteus mirabilis, pansensitive. IMPRESSION: 1. Bronchopneumonia. 2. Aortic valve stenosis, moderate in degree. 3. Mild coronary artery disease. 4. Hyperlipidemia. 5. Hypertension. PLAN: The patient is going to continue on azithromycin and ceftriaxone along with DuoNebs. She will continue her fluconazole and we will ask Dr. Barclay to be consulted for her pulmonary issue. Job ID: [id number]
[2018-11-23 11:28] VITALS: BMI 25.9
[2018-11-23] MEDS: Benzonatate 100 MG CAP PO PRN (11:52)
[2018-11-23] MEDS: Azithromycin 500 MG in Sodium Chloride 0.9% 250 ML 250 ML IVPB SCH (11:52)
[2018-11-23] MEDS ORDERED: guaiFENesin ER 600 MG TAB PO SCH (14:00)
[2018-11-23] MEDS ORDERED: predniSONE 20 MG TAB PO SCH (14:00)
[2018-11-23] MEDS ORDERED: Furosemide 20 MG/2 ML VIAL SLOW IVP SCH (14:15)
--- NOTE | 2018-11-23 14:46 | CON ---
DATE OF CONSULTATION: 11/23/2018 SERVICE: Pulmonary Medicine. REASON FOR CONSULTATION: Respiratory failure. HISTORY OF PRESENT ILLNESS: The patient is a 68-year-old white female with past medical history significant for essentially nothing. She has a remote history of smoking. There is only about 15-pack year history of smoking, but she quit in 2001. Until recently, she had no respiratory issues. For the past 2 weeks, she has had a slowly increasing cough with sputum production. She noted having some night sweats that go on for several years. The cough was productive of a brown sputum. This escalated to the point where she presented to the emergency department. Along the way, she developed fevers, myalgia, coryza. She had a positive sick contact. Her significant other has been sick for the better part of 2 months. Since she has been in the hospital, on antibiotics, everything has improved. Her cough is also gotten significantly better. That being said, she still has coughing paroxysms that sometimes keeps her from getting consolidated rest. She feels that if she goes home, should be leaving too early and she might have to come back to the hospital. Interestingly, she notes orthopnea going on for a couple of weeks. PAST MEDICAL HISTORY: 1. Hypertension. 2. Dyslipidemia. 3. Major depression. 4. Chronic back pain. 5. Psychiatric issues including anxiety disorder and major depressive disorder. PAST SURGICAL HISTORY: 1. Knee surgeries, bilateral. 2. Right shoulder surgery. 3. Low back surgery x3. 4. Neck surgery. 5. Gastric bypass. 6. Eye surgeries, bilateral. ALLERGIES: MORPHINE CAUSES NAUSEA. MEDICATIONS: List of her inpatient medications was reviewed. Multiple small updates were made. FAMILY HISTORY: Noncontributory. SOCIAL HISTORY: Negative for alcohol, tobacco, or illicit drug use. She quit smoking in 2001, but prior to that had a 15-pack year history of smoking. Denies any illicit drugs. She has no exposure to chemicals, dust, or asbestos. She has no known exposures to tuberculosis. REVIEW OF SYSTEMS: General, head, ears, eyes, nose, throat, cardiovascular, respiratory, GI, , musculoskeletal, neurologic, and skin are negative except as mentioned in the HPI. PHYSICAL EXAMINATION: VITAL SIGNS: Afebrile, pulse 71, blood pressure 129/61, respirations 16, and saturation 93% on room air. GENERAL: The patient is awake and alert, in no apparent distress. LUNGS: Decent air entry. There is an inspiratory wheezing and expiratory wheezing present. Extensive rhonchi are present. I also hear bibasilar crackles. HEART: Normal rate and regular. ABDOMEN: Soft, nontender, and nondistended. Bowel sounds are positive. MUSCULOSKELETAL: No cyanosis or clubbing. There is trace pitting in the bilateral lower extremities. NEUROLOGIC: Grossly nonfocal. LABORATORY DATA: WBC 12.6, hemoglobin 11.2, platelets 364,000. On presentation , her platelets were significantly low. D-dimer 2.2. Basic metabolic profile is essentially unremarkable with potassium of 4.3. B12 level is greater than 2000. BNP was originally 1500, troponin was unremarkable x1 and downtrending. Urinalysis is unremarkable. Urine strep and Legionella antigens are unremarkable. Sputum culture is growing both Joan albicans and Haemophilus influenzae. Urine culture is growing pansensitive Proteus mirabilis. ASSESSMENT: 1. Acute hypoxic respiratory failure, resolved. 2. Acute bronchitis. 3. Community-acquired pneumonia secondary to Haemophilus influenzae. 4. Urinary tract infection secondary to Proteus mirabilis. DISCUSSION AND PLAN: We will give the patient a 5-day course of steroids. I will collect a sputum sample for AFB smear and culture to make certain we are not dealing with tuberculosis, which I doubt significantly. The patient had extensive infiltrates on her chest CT. It does not surprise me that she is having a hard time recovering, but she certainly is moving in the right direction based on her history. Azithromycin can be interrupted after 5 days. Rocephin needs to be continued for a total duration of 7 days. Agree with nebulized medications. I will add some Mucinex to see if we can promote expectoration of sputum. Diflucan is not necessary. That being said, since we are already initiated treatment, we can limit to a 7-day course as well. From my perspective, the patient is stable for transition out of the hospital. All cough suppressing medications will be interrupted as this could exacerbate heart issue. Pulmonary/Critical Care will continue to follow along while the patient remains in-house. Ultimately on discharge from the hospital, she will need a repeat CT of the chest in the outpatient setting in roughly 6 weeks. This will need to be a contrasted study to re-evaluate the mediastinal lymph nodes. 70 minutes have been devoted to this patient in various activities. I personally reviewed all imaging studies and laboratory data noted within this document. For fifty percent of this time, I was interacting with the patient at the bedside or coordinating care with the care team. For the remainder of the time I was immediately available to the patient in the hospital unit. Job ID: [id number] MTDD
[2018-11-23] MEDS: guaiFENesin ER 600 MG TAB PO SCH (20:26)
[2018-11-24] MEDS: cefTRIAXone\\ROCEPHIN 1 GM in Sodium Chloride 0.9% 100 ML IVPB SCH (04:26)
[2018-11-24] MEDS: Azithromycin 500 MG in Sodium Chloride 0.9% 250 ML 250 ML IVPB SCH (05:39)
[2018-11-24] MEDS ORDERED: hydrALAZINE 20 MG/ML VIAL SLOW IVP PRN (05:48)
[2018-11-24] MEDS: Aspirin 81 mg Enteric Coated Tablet PO SCH (08:42)
[2018-11-24] MEDS: predniSONE 20 MG TAB PO SCH (08:42)
[2018-11-24] MEDS: Carvedilol 6.25 MG TAB PO SCH ×2 (08:42→20:09)
[2018-11-24] MEDS: Enoxaparin Sodium 40 MG/0.4 ML SYRINGE SC SCH (08:44)
[2018-11-24] MEDS: Fluconazole 100 MG TAB PO SCH (08:44)
[2018-11-24] MEDS: Magnesium Oxide 250 MG TAB PO SCH (08:45)
[2018-11-24] MEDS: guaiFENesin ER 600 MG TAB PO SCH ×2 (08:45→20:10)
[2018-11-24] MEDS: FLUoxetine HCl 20 MG CAP PO SCH ×2 (08:45→20:09)
[2018-11-24] MEDS: Multivit, Chewable SF 1 TAB PO SCH (08:46)
[2018-11-24] MEDS: Zinc Sulfate 220 MG CAP PO SCH (08:46)
[2018-11-24] MEDS ORDERED: Furosemide 20 MG/2 ML VIAL SLOW IVP SCH (09:00)
[2018-11-24] MEDS: HYDROcodone/Acetaminophen 5/325 mg Tablet PO PRN (10:37)
[2018-11-24] MEDS: Lidocaine Viscous Sol 2% 15 ml UD Cup SSW PRN ×2 (13:05→17:51)
[2018-11-24] MEDS: Nystatin 500,000 UNITS/5 ML UDCUP SSW SCH ×3 (13:05→20:10)
[2018-11-24] MEDS ORDERED: traZODone HCl 50 MG TAB PO PRN (14:42)
--- NOTE | 2018-11-24 14:44 | PDOC.PN ---
- Subjective Encounter Start Date: 11/24/18 Encounter Start Time: 14:42 Subjective: feels better but still poor eating d/t mouth sores -: no SOB.no fever -: can't take PO meds due to oral pain and persistantly coughing,can't sleep - Objective Resuscitation Status - Order Detail: 11/20/18 02:40 Resuscitation Status Routine Resuscitation Status: FULL: Full Resuscitation Discussed with: patient and family MAR Reviewed: Yes Vital Signs & Weight: Vital Signs (12 hours) Temp Pulse Resp BP Pulse Ox 11/24/18 12:54 97.9 F 71 18 139/65 94 L 11/24/18 07:24 97.7 F 83 17 139/65 96 11/24/18 06:40 69 18 95 11/24/18 05:55 73 11/24/18 04:30 97.8 F 73 18 186/79 H 95 Weight Admit Weight 144 lb 11.2 oz Weight 143 lb 8.335 oz I&O: 11/23/18 11/24/18 11/25/18 06:59 06:59 06:59 Intake Total 1760 1170 Output Total 1200 800 Balance 560 370 Result Diagrams: 11/22/18 04:39 11/22/18 04:39 Additional Labs: Microbiology 11/20/18 17:45 Sputum Respiratory Culture - Final Haemophilus influenzae Presumptive Joan albicans 11/20/18 01:53 Urine voided Urine Culture - Final Proteus mirabilis 11/20/18 00:57 Nasal swab Influenza Types A,B Direct EIA - Final Laboratory Tests 11/19/18 11/19/18 11/19/18 23:35 23:35 23:35 WBC 16.8 H D-Dimer Troponin I 0.024 B-Natriuretic Peptide 1543.4 H Vitamin B12 Ur L.pneumophila Ag Ur Strep pneumoniae Ag 11/19/18 11/20/18 11/20/18 23:35 01:53 04:47 WBC 15.6 H D-Dimer 2.20 H Troponin I B-Natriuretic Peptide Vitamin B12 Ur L.pneumophila Ag Negative Ur Strep pneumoniae Ag NEGATIVE 11/21/18 11/22/18 11/23/18 04:55 04:39 04:37 WBC 18.9 H 12.6 H D-Dimer Troponin I B-Natriuretic Peptide Vitamin B12 Greater than 2000 H Ur L.pneumophila Ag Ur Strep pneumoniae Ag Phys Exam - Physical Examination Constitutional: NAD HEENT: PERRLA, moist MMs, sclera anicteric, oral pharynx no lesions multiple apthous ulcers on tounge. Neck: no nodes, no JVD, supple, full ROM Respiratory: no wheezing, no rales, no rhonchi, clear to auscultation bilateral Cardiovascular: RRR, no significant murmur Gastrointestinal: soft, non-tender, no distention, positive bowel sounds Musculoskeletal: no edema, pulses present Neurological: non-focal, normal sensation, moves all 4 limbs Psychiatric: normal affect, A&O x 3 Skin: no rash Dx/Plan (1) CAP (community acquired pneumonia) Code(s): J18.9 - PNEUMONIA, UNSPECIFIED ORGANISM Status: Acute Comment: H.influenzae (2) UTI (urinary tract infection) Status: Acute Comment: proteus mirabilis (3) Moderate aortic stenosis Code(s): I35.0 - NONRHEUMATIC AORTIC (VALVE) STENOSIS Status: Chronic (4) HTN (hypertension) Code(s): I10 - ESSENTIAL (PRIMARY) HYPERTENSION Status: Chronic - Plan continue antibiotics, incentive spirometry, out of bed/ambulate, DVT proph w/ SCDs Cont IV ABx to cover for PNA and UTI.slow clinical improvement but better -: Ok to move to medical -: add viscous lidocaine for oral ulcers.encouraged to increase po intake -: may need another 24 hrs prior to be cleared for DC.cont supportive care -: agree w lasix * . Review of Systems - Review of Systems Constitutional: negative: fever, chills, sweats, weakness, malaise, other ENT: Mouth Pain. negative: Ear Pain, Ear Discharge, Nose Pain, Nose Discharge, Nose Congestion, Mouth Swelling, Throat Pain, Throat Swelling, Other Respiratory: Cough. negative: Dry, Shortness of Breath, Hemoptysis, SOB with Excertion, Pleuritic Pain, Sputum, Wheezing Cardiovascular: negative: chest pain, palpitations, orthopnea, paroxysmal nocturnal dyspnea, edema, light headedness, other Gastrointestinal: negative: Nausea, Vomiting, Abdominal Pain, Diarrhea, Constipation, Melena, Hematochezia, Other Genitourinary: negative: Dysuria, Frequency, Incontinence, Hematuria, Retention , Other Musculoskeletal: negative: Neck Pain, Shoulder Pain, Arm Pain, Back Pain, Hand Pain, Leg Pain, Foot Pain, Other Neurological: negative: Weakness, Numbness, Incoordination, Change in Speech, Confusion, Seizures, Other - Medications/Allergies Allergies/Adverse Reactions: Allergies Allergy/AdvReac Type Severity Reaction Status Date / Time morphine AdvReac Intermediate Nausea Verified 11/10/18 10:22 Medications: Current Medications Acetaminophen (Tylenol) 650 mg PO Q4H PRN PRN Reason: Headache/Fever/Mild Pain (1-3) Hydrocodone Bitart/Acetaminophen ([place] 5/325) 1 tab PO Q4H PRN PRN Reason: Moderate Pain (4-6) Last Admin: 11/24/18 10:37 Dose: 1 tab Albuterol/Ipratropium (Duoneb) 3 ml NEB QIDPRN PRN PRN Reason: SOB &/or Wheezing Aspirin (Ecotrin) 81 mg PO DAILY [facility] Last Admin: 11/24/18 08:42 Dose: 81 mg Carvedilol (Coreg) 12.5 mg PO BID [facility] Last Admin: 11/24/18 08:42 Dose: 12.5 mg Enoxaparin Sodium (Lovenox) 40 mg SC 0900 [facility] Last Admin: 11/24/18 08:44 Dose: 40 mg Fluconazole (Diflucan) 200 mg PO DAILY [facility] Stop: 11/30/18 09:01 Last Admin: 11/24/18 08:44 Dose: 200 mg Fluoxetine HCl (Prozac) 40 mg PO BID [facility] Last Admin: 11/24/18 08:45 Dose: 40 mg Gabapentin (Neurontin) 600 mg PO Q6H PRN PRN Reason: Pain Last Admin: 11/20/18 20:56 Dose: 600 mg Guaifenesin (Mucinex) 1,200 mg PO Q12HR [facility] Last Admin: 11/24/18 08:45 Dose: 1,200 mg Guaifenesin/Dextromethorphan (Mucinex Dm) 1 tab PO Q12H PRN PRN Reason: cough Last Admin: 11/21/18 10:13 Dose: 1 tab Hydralazine HCl (Apresoline) 10 mg SLOW IVP Q4H PRN PRN Reason: BP >160/100 Last Admin: 11/24/18 05:55 Dose: 10 mg Azithromycin 500 mg/ Sodium (Chloride) 250 mls @ 250 mls/hr IVPB Q24HR [facility] Stop: 11/25/18 06:01 Last Admin: 11/24/18 05:39 Dose: 250 mls Ceftriaxone Sodium 1 gm/ (Sodium Chloride) 100 mls @ 200 mls/hr IVPB Q24HR [facility] Stop: 11/27/18 05:01 Last Admin: 11/24/18 04:26 Dose: 100 mls Lidocaine HCl (Xylocaine 2% Viscous) 15 ml SSW QIDPRN PRN PRN Reason: Mouth Irritation Last Admin: 11/24/18 13:05 Dose: 15 ml Magnesium Oxide (Magnesium Oxide) 500 mg PO DAILY [facility] Last Admin: 11/24/18 08:45 Dose: 500 mg Melatonin (Melatonin) 4.5 mg PO HS PRN PRN Reason: Insomnia Last Admin: 11/20/18 20:55 Dose: 4.5 mg Meloxicam (Mobic) 15 mg PO Q6HR PRN PRN Reason: Back pain Multivitamins (Multivit, Chewable Sf) 1 tab PO DAILY [facility] Last Admin: 11/24/18 08:46 Dose: 1 tab Nystatin (Mycostatin) 500,000 units SSW QID [facility] Last Admin: 11/24/18 13:05 Dose: 500,000 units Ondansetron HCl (Zofran) 4 mg IVP Q6H PRN PRN Reason: Nausea/Vomiting Last Admin: 11/22/18 22:12 Dose: 4 mg Phenol (Chloraseptic [place] 180 Ml Bot) 5 ml PO BIDPRN PRN PRN Reason: Sore Throat Prednisone (Prednisone) 40 mg PO QAM-WM [facility] Stop: 11/27/18 08:01 Last Admin: 11/24/18 08:42 Dose: 40 mg Pyridoxine HCl (Vitamin B 6) 50 mg PO HSPRN PRN PRN Reason: Insomnia Sodium Chloride (Flush - Normal Saline) 10 ml IVF Q12HR PRN PRN Reason: Saline Flush Last Admin: 11/24/18 08:53 Dose: 10 ml Sterile Water (Bacteriostatic Water) 1 ml FS PRN PRN PRN Reason: RECONSTITUTION Trazodone HCl (Desyrel) 50 mg PO HS PRN PRN Reason: Insomnia Zinc Sulfate (Zinc Sulfate) 220 mg PO DAILY [facility] Last Admin: 11/24/18 08:46 Dose: 220 mg Zolpidem Tartrate (Ambien) 5 mg PO HSPRN PRN PRN Reason: Insomnia
[2018-11-24] MEDS: Melatonin 3 MG TAB PO PRN (20:10)
[2018-11-24] MEDS: Acetaminophen 325 MG TAB PO PRN (20:10)
[2018-11-25] MEDS: cefTRIAXone\\ROCEPHIN 1 GM in Sodium Chloride 0.9% 100 ML IVPB SCH (04:14)
[2018-11-25] MEDS: Azithromycin 500 MG in Sodium Chloride 0.9% 250 ML 250 ML IVPB SCH (05:35)
[2018-11-25] MEDS: Nystatin 500,000 UNITS/5 ML UDCUP SSW SCH ×4 (08:29→21:58)
[2018-11-25] MEDS: HYDROcodone/Acetaminophen 5/325 mg Tablet PO PRN ×2 (08:30→15:08)
[2018-11-25] MEDS: guaiFENesin ER 600 MG TAB PO SCH ×2 (08:30→21:57)
[2018-11-25] MEDS: Enoxaparin Sodium 40 MG/0.4 ML SYRINGE SC SCH (08:30)
[2018-11-25] MEDS: Multivit, Chewable SF 1 TAB PO SCH (08:31)
[2018-11-25] MEDS: predniSONE 20 MG TAB PO SCH (08:32)
[2018-11-25] MEDS: Fluconazole 100 MG TAB PO SCH (08:32)
[2018-11-25] MEDS: FLUoxetine HCl 20 MG CAP PO SCH ×2 (08:33→21:56)
[2018-11-25] MEDS: Carvedilol 6.25 MG TAB PO SCH ×2 (08:33→21:56)
[2018-11-25] MEDS: Aspirin 81 mg Enteric Coated Tablet PO SCH (08:34)
[2018-11-25] MEDS: Zinc Sulfate 220 MG CAP PO SCH (08:34)
[2018-11-25] MEDS: Magnesium Oxide 250 MG TAB PO SCH (08:46)
[2018-11-25] MEDS ORDERED: cloNIDine 0.1 MG TAB PO PRN (09:13)
[2018-11-25] MEDS: Lidocaine Viscous Sol 2% 15 ml UD Cup SSW SCH (13:00)
--- NOTE | 2018-11-25 14:14 | PDOC.PN ---
- Subjective Encounter Start Date: 11/25/18 Encounter Start Time: 14:14 Subjective: feels mrginally better. oral sores stil painful -: eating poorly because of oral pain -: couldn't sleep due to cough but it hurts to take cough syrup - Objective Resuscitation Status - Order Detail: 11/20/18 02:40 Resuscitation Status Routine Resuscitation Status: FULL: Full Resuscitation Discussed with: patient and family MAR Reviewed: Yes Vital Signs & Weight: Vital Signs (12 hours) Temp Pulse Resp BP Pulse Ox 11/25/18 11:04 98.2 F 65 18 107/59 L 91 L 11/25/18 07:10 97.9 F 85 18 166/94 H 97 11/25/18 05:03 98 F 80 16 146/86 H 96 Weight Admit Weight 144 lb 11.2 oz Weight 143 lb 8.335 oz I&O: 11/24/18 11/25/18 11/26/18 06:59 06:59 06:59 Intake Total 1170 600 Output Total 800 Balance 370 600 Result Diagrams: 11/22/18 04:39 11/22/18 04:39 Additional Labs: Microbiology 11/23/18 Unknown Sputum Acid Fast Bacilli Smear - Final 11/20/18 17:45 Sputum Respiratory Culture - Final Haemophilus influenzae Presumptive Joan albicans 11/20/18 01:53 Urine voided Urine Culture - Final Proteus mirabilis 11/20/18 00:57 Nasal swab Influenza Types A,B Direct EIA - Final Phys Exam - Physical Examination Constitutional: NAD HEENT: PERRLA, moist MMs, sclera anicteric, oral pharynx no lesions oral aphtous stomatitis Neck: no nodes, no JVD, supple, full ROM Respiratory: no wheezing, no rhonchi, clear to auscultation bilateral coarse sounds b/l Cardiovascular: RRR, no significant murmur, no rub Gastrointestinal: soft, non-tender, no distention, positive bowel sounds Musculoskeletal: no edema, pulses present Neurological: non-focal, normal sensation, moves all 4 limbs Psychiatric: normal affect, A&O x 3 Skin: no rash Dx/Plan (1) CAP (community acquired pneumonia) Code(s): J18.9 - PNEUMONIA, UNSPECIFIED ORGANISM Status: Acute Comment: H.influenzae (2) UTI (urinary tract infection) Status: Acute Comment: proteus mirabilis (3) Moderate aortic stenosis Code(s): I35.0 - NONRHEUMATIC AORTIC (VALVE) STENOSIS Status: Chronic (4) HTN (hypertension) Code(s): I10 - ESSENTIAL (PRIMARY) HYPERTENSION Status: Chronic - Plan continue antibiotics, DVT proph w/SCDs add oral steroid SSW.cont viscous lidocaine -: add probiotics and MV. -: Likely DC in next 24 hours. -: HD stable * . Review of Systems - Review of Systems Constitutional: weakness, malaise. negative: fever, chills, sweats, other Respiratory: Cough. negative: Dry, Shortness of Breath, Hemoptysis, SOB with Excertion, Pleuritic Pain, Sputum, Wheezing Cardiovascular: negative: chest pain, palpitations, orthopnea, paroxysmal nocturnal dyspnea, edema, light headedness, other Gastrointestinal: negative: Nausea, Vomiting, Abdominal Pain, Diarrhea, Constipation, Melena, Hematochezia, Other Genitourinary: negative: Dysuria, Frequency, Incontinence, Hematuria, Retention , Other Musculoskeletal: negative: Neck Pain, Shoulder Pain, Arm Pain, Back Pain, Hand Pain, Leg Pain, Foot Pain, Other Skin: negative: Rash, Lesions, Oneal, Bruising, Other Neurological: negative: Weakness, Numbness, Incoordination, Change in Speech, Confusion, Seizures, Other - Medications/Allergies Allergies/Adverse Reactions: Allergies Allergy/AdvReac Type Severity Reaction Status Date / Time morphine AdvReac Intermediate Nausea Verified 11/10/18 10:22 Medications: Current Medications Acetaminophen (Tylenol) 650 mg PO Q4H PRN PRN Reason: Headache/Fever/Mild Pain (1-3) Last Admin: 11/24/18 20:10 Dose: 650 mg Hydrocodone Bitart/Acetaminophen ([place] 5/325) 1 tab PO Q4H PRN PRN Reason: Moderate Pain (4-6) Last Admin: 11/25/18 08:30 Dose: 1 tab Albuterol/Ipratropium (Duoneb) 3 ml NEB QIDPRN PRN PRN Reason: SOB &/or Wheezing Aspirin (Ecotrin) 81 mg PO DAILY [facility] Last Admin: 11/25/18 08:34 Dose: 81 mg Carvedilol (Coreg) 12.5 mg PO BID [facility] Last Admin: 11/25/18 08:33 Dose: 12.5 mg Clonidine (Catapres) 0.1 mg PO Q4H PRN PRN Reason: SBP>160 Enoxaparin Sodium (Lovenox) 40 mg SC 0900 [facility] Last Admin: 11/25/18 08:30 Dose: 40 mg Fluconazole (Diflucan) 200 mg PO DAILY [facility] Stop: 11/30/18 09:01 Last Admin: 11/25/18 08:32 Dose: 200 mg Fluoxetine HCl (Prozac) 40 mg PO BID [facility] Last Admin: 11/25/18 08:33 Dose: 40 mg Gabapentin (Neurontin) 600 mg PO Q6H PRN PRN Reason: Pain Last Admin: 11/20/18 20:56 Dose: 600 mg Guaifenesin (Mucinex) 1,200 mg PO Q12HR [facility] Last Admin: 11/25/18 08:30 Dose: 1,200 mg Guaifenesin/Dextromethorphan (Mucinex Dm) 1 tab PO Q12H PRN PRN Reason: cough Last Admin: 11/21/18 10:13 Dose: 1 tab Hydralazine HCl (Apresoline) 10 mg SLOW IVP Q4H PRN PRN Reason: BP >160/100 Last Admin: 11/24/18 05:55 Dose: 10 mg Ceftriaxone Sodium 1 gm/ (Sodium Chloride) 100 mls @ 200 mls/hr IVPB Q24HR [facility] Stop: 11/27/18 05:01 Last Admin: 11/25/18 04:14 Dose: 100 mls Lidocaine HCl (Xylocaine 2% Viscous) 15 ml SSW QIDPRN PRN PRN Reason: Mouth Irritation Last Admin: 11/24/18 17:51 Dose: 15 ml Lidocaine HCl (Xylocaine 2% Viscous) 15 ml SSW AC [facility] Last Admin: 11/25/18 13:00 Dose: 15 ml Magnesium Oxide (Magnesium Oxide) 500 mg PO DAILY [facility] Last Admin: 11/25/18 08:46 Dose: Not Given Melatonin (Melatonin) 4.5 mg PO HS PRN PRN Reason: Insomnia Last Admin: 11/24/18 20:10 Dose: 4.5 mg Meloxicam (Mobic) 15 mg PO Q6HR PRN PRN Reason: Back pain Multivitamins (Multivit, Chewable Sf) 1 tab PO DAILY [facility] Last Admin: 11/25/18 08:31 Dose: 1 tab Nystatin (Mycostatin) 500,000 units SSW QID [facility] Last Admin: 11/25/18 13:03 Dose: 500,000 units Ondansetron HCl (Zofran) 4 mg IVP Q6H PRN PRN Reason: Nausea/Vomiting Last Admin: 11/22/18 22:12 Dose: 4 mg Phenol (Chloraseptic [place] 180 Ml Bot) 5 ml PO BIDPRN PRN PRN Reason: Sore Throat Prednisone (Prednisone) 40 mg PO QA[facility] Stop: 11/27/18 08:01 Last Admin: 11/25/18 08:32 Dose: 40 mg Pyridoxine HCl (Vitamin B 6) 50 mg PO HSPRN PRN PRN Reason: Insomnia Sodium Chloride (Flush - Normal Saline) 10 ml IVF Q12HR PRN PRN Reason: Saline Flush Last Admin: 11/24/18 08:53 Dose: 10 ml Sterile Water (Bacteriostatic Water) 1 ml FS PRN PRN PRN Reason: RECONSTITUTION Trazodone HCl (Desyrel) 50 mg PO HS PRN PRN Reason: Insomnia Zinc Sulfate (Zinc Sulfate) 220 mg PO DAILY [facility] Last Admin: 11/25/18 08:34 Dose: 220 mg Zolpidem Tartrate (Ambien) 5 mg PO HSPRN PRN PRN Reason: Insomnia
--- NOTE | 2018-11-25 14:53 | PRG ---
DATE OF SERVICE: 11/25/2018 SERVICE: Pulmonary Medicine. INTERVAL HISTORY: The patient is doing really well from respiratory standpoint. Breathing comfortably. Denies any current chest pain, fevers or chills. Her coughing fits are much improved. She has decreasing dyspnea on exertion, and actually is feeling quite more comfortable, though she still feels a little bit timid at being discharged from the hospital at this point. Otherwise, there has been no interval change to her condition, and she actually had a decent night. Outside of that, one small coughing fit. PHYSICAL EXAMINATION: VITAL SIGNS: Afebrile, pulse 65, blood pressure 107/59, respirations 18, and saturation 91% on room air. GENERAL: The patient is awake and alert, in no apparent distress. LUNGS: Decent air entry. Rhonchi are present, but much improved. There is a slightly prolonged expiratory phase, but no wheezing or crackles. HEART: Normal rate and regular. ABDOMEN: Soft, nontender, and nondistended. Bowel sounds are positive. MUSCULOSKELETAL: No cyanosis or clubbing. There is no pitting in the bilateral lower extremities. NEUROLOGIC: Grossly nonfocal. LABORATORY DATA: Haemophilus influenzae is growing in the sputum culture. Urine culture is growing Proteus mirabilis, which is essentially pansensitive. Acid- fast smear was negative for any organisms. ASSESSMENT: 1. Acute hypoxic respiratory failure, resolved. 2. Acute bronchitis. 3. Community-acquired pneumonia secondary to Haemophilus influenzae. 4. Urinary tract infection secondary to Proteus mirabilis. 5. Mediastinal lymphadenopathy. DISCUSSION AND PLAN: I think the patient is actually progressing beautifully. She can complete a 5-day course of steroids, and a 7-day course of antibiotics. We can continue the nebulized medications for the time being. I have encourage the patient to walk. She is stable for transition out of the hospital, but will need repeat imaging in roughly 6 weeks to verify the infiltrates have resolved. If they have not, Pulmonary consultation in the outpatient setting should be considered. I will continue to follow as long as she remains in-house, but from my perspective, she is stable for transition over to oral agents and discharge. Job ID: [id number] MTDD
[2018-11-25] MEDS: Dexamethasone 0.5 MG/5 ML UDCUP PO SCH ×2 (15:39→22:05)
[2018-11-25] MEDS: Acetaminophen 325 MG TAB PO PRN (21:58)
[2018-11-25] MEDS: diphenhydrAMINE 25 MG CAP PO PRN (21:58)
[2018-11-25] MEDS: Melatonin 3 MG TAB PO PRN (21:59)
[2018-11-26] MEDS: cefTRIAXone\\ROCEPHIN 1 GM in Sodium Chloride 0.9% 100 ML IVPB SCH (05:41)
[2018-11-26] MEDS: Aspirin 81 mg Enteric Coated Tablet PO SCH (08:11)
[2018-11-26] MEDS: FLUoxetine HCl 20 MG CAP PO SCH ×2 (08:11→20:07)
[2018-11-26] MEDS: Fluconazole 100 MG TAB PO SCH (08:12)
[2018-11-26] MEDS: predniSONE 20 MG TAB PO SCH (08:12)
[2018-11-26] MEDS: guaiFENesin ER 600 MG TAB PO SCH ×2 (08:13→20:06)
[2018-11-26] MEDS: Magnesium Oxide 250 MG TAB PO SCH (08:13)
[2018-11-26] MEDS: Multivit, Chewable SF 1 TAB PO SCH (08:14)
[2018-11-26] MEDS: Carvedilol 6.25 MG TAB PO SCH ×2 (08:14→20:06)
[2018-11-26] MEDS: Enoxaparin Sodium 40 MG/0.4 ML SYRINGE SC SCH (08:15)
[2018-11-26] MEDS: Dexamethasone 0.5 MG/5 ML UDCUP PO SCH ×3 (08:15→20:05)
[2018-11-26] MEDS: Nystatin 500,000 UNITS/5 ML UDCUP SSW SCH ×4 (08:15→20:08)
[2018-11-26] MEDS: Zinc Sulfate 220 MG CAP PO SCH (08:16)
[2018-11-26] MEDS: HYDROcodone/Acetaminophen 5/325 mg Tablet PO PRN ×2 (08:22→12:51)
[2018-11-26] MEDS: Lidocaine Viscous Sol 2% 15 ml UD Cup SSW SCH ×3 (12:48→17:26)
--- NOTE | 2018-11-26 14:43 | PDOC.PN ---
- Subjective Encounter Start Date: 11/26/18 Encounter Start Time: 14:41 Subjective: feels that she is getting better but not ready to go home yet -: eating better an dmouth pain is better - Objective Resuscitation Status - Order Detail: 11/20/18 02:40 Resuscitation Status Routine Resuscitation Status: FULL: Full Resuscitation Discussed with: patient and family MAR Reviewed: Yes Vital Signs & Weight: Vital Signs (12 hours) Temp Pulse Resp BP Pulse Ox 11/26/18 08:00 93 L 11/26/18 07:22 98.3 F 76 18 168/91 H 93 L Weight Admit Weight 144 lb 11.2 oz Weight 143 lb 8.335 oz I&O: 11/25/18 11/26/18 11/27/18 06:59 06:59 06:59 Intake Total 600 370 Balance 600 370 Result Diagrams: 11/22/18 04:39 11/22/18 04:39 Additional Labs: Microbiology 11/23/18 Unknown Sputum Acid Fast Bacilli Smear - Final 11/20/18 17:45 Sputum Respiratory Culture - Final Haemophilus influenzae Presumptive Joan albicans 11/20/18 01:53 Urine voided Urine Culture - Final Proteus mirabilis 11/20/18 00:57 Nasal swab Influenza Types A,B Direct EIA - Final 11/19/18 23:44 Venous blood - Left Hand Blood Culture - Final NO GROWTH IN 5 DAYS 11/19/18 23:35 Venous blood - Right Arm Blood Culture - Final NO GROWTH IN 5 DAYS Phys Exam - Physical Examination Constitutional: NAD HEENT: PERRLA, moist MMs, sclera anicteric, TM's clear, oral pharynx no lesions , 2+ tonsils oral ulcers improving Neck: no nodes, no JVD, supple, full ROM Respiratory: no wheezing, no rales, no rhonchi, clear to auscultation bilateral Cardiovascular: RRR, no significant murmur Gastrointestinal: soft, non-tender, no distention, positive bowel sounds Musculoskeletal: no edema, pulses present Neurological: non-focal, normal sensation, moves all 4 limbs Psychiatric: normal affect, A&O x 3 Skin: no rash Dx/Plan (1) CAP (community acquired pneumonia) Code(s): J18.9 - PNEUMONIA, UNSPECIFIED ORGANISM Status: Acute Comment: H.influenzae (2) UTI (urinary tract infection) Status: Acute Comment: proteus mirabilis (3) Moderate aortic stenosis Code(s): I35.0 - NONRHEUMATIC AORTIC (VALVE) STENOSIS Status: Chronic (4) HTN (hypertension) Code(s): I10 - ESSENTIAL (PRIMARY) HYPERTENSION Status: Chronic - Plan continue antibiotics, PT/OT, respiratory therapy, incentive spirometry, out of bed/ambulate, DVT proph w/SCDs clinically better.cont IV ABx fo lizy mitchell -: DC in am tomorrow . -: Hd stable -: cont dexamethasone SSW for apthous stomatitis-improving * . Review of Systems - Review of Systems Constitutional: weakness, malaise. negative: fever, chills, sweats, other Respiratory: Cough. negative: Dry, Shortness of Breath, Hemoptysis, SOB with Excertion, Pleuritic Pain, Sputum, Wheezing Cardiovascular: negative: chest pain, palpitations, orthopnea, paroxysmal nocturnal dyspnea, edema, light headedness, other Gastrointestinal: negative: Nausea, Vomiting, Abdominal Pain, Diarrhea, Constipation, Melena, Hematochezia, Other Genitourinary: negative: Dysuria, Frequency, Incontinence, Hematuria, Retention , Other Musculoskeletal: negative: Neck Pain, Shoulder Pain, Arm Pain, Back Pain, Hand Pain, Leg Pain, Foot Pain, Other Neurological: negative: Weakness, Numbness, Incoordination, Change in Speech, Confusion, Seizures, Other - Medications/Allergies Allergies/Adverse Reactions: Allergies Allergy/AdvReac Type Severity Reaction Status Date / Time morphine AdvReac Intermediate Nausea Verified 11/10/18 10:22 Medications: Current Medications Acetaminophen (Tylenol) 650 mg PO Q4H PRN PRN Reason: Headache/Fever/Mild Pain (1-3) Last Admin: 11/25/18 21:58 Dose: 650 mg Hydrocodone Bitart/Acetaminophen ([place] 5/325) 1 tab PO Q4H PRN PRN Reason: Moderate Pain (4-6) Last Admin: 11/26/18 12:51 Dose: 1 tab Albuterol/Ipratropium (Duoneb) 3 ml NEB QIDPRN PRN PRN Reason: SOB &/or Wheezing Aspirin (Ecotrin) 81 mg PO DAILY [facility] Last Admin: 11/26/18 08:11 Dose: 81 mg Carvedilol (Coreg) 12.5 mg PO BID [facility] Last Admin: 11/26/18 08:14 Dose: 12.5 mg Clonidine (Catapres) 0.1 mg PO Q4H PRN PRN Reason: SBP>160 Dexamethasone (Dexamethasone) 0.5 mg PO TID [facility] Last Admin: 11/26/18 08:15 Dose: 0.5 mg Diphenhydramine HCl (Benadryl) 25 mg PO HSPRN PRN PRN Reason: Insomnia Last Admin: 11/25/18 21:58 Dose: 25 mg Enoxaparin Sodium (Lovenox) 40 mg SC 0900 [facility] Last Admin: 11/26/18 08:15 Dose: 40 mg Fluconazole (Diflucan) 200 mg PO DAILY [facility] Stop: 11/30/18 09:01 Last Admin: 11/26/18 08:12 Dose: 200 mg Fluoxetine HCl (Prozac) 40 mg PO BID [facility] Last Admin: 11/26/18 08:11 Dose: 40 mg Gabapentin (Neurontin) 600 mg PO Q6H PRN PRN Reason: Pain Last Admin: 11/20/18 20:56 Dose: 600 mg Guaifenesin (Mucinex) 1,200 mg PO Q12HR [facility] Last Admin: 11/26/18 08:13 Dose: 1,200 mg Guaifenesin/Dextromethorphan (Mucinex Dm) 1 tab PO Q12H PRN PRN Reason: cough Last Admin: 11/21/18 10:13 Dose: 1 tab Hydralazine HCl (Apresoline) 10 mg SLOW IVP Q4H PRN PRN Reason: BP >160/100 Last Admin: 11/24/18 05:55 Dose: 10 mg Ceftriaxone Sodium 1 gm/ (Sodium Chloride) 100 mls @ 200 mls/hr IVPB Q24HR [facility] Stop: 11/27/18 05:01 Last Admin: 11/26/18 05:41 Dose: 100 mls Lidocaine HCl (Xylocaine 2% Viscous) 15 ml SSW QIDPRN PRN PRN Reason: Mouth Irritation Last Admin: 11/24/18 17:51 Dose: 15 ml Lidocaine HCl (Xylocaine 2% Viscous) 15 ml SSW AC [facility] Last Admin: 11/26/18 12:49 Dose: Not Given Magnesium Oxide (Magnesium Oxide) 500 mg PO DAILY [facility] Last Admin: 11/26/18 08:13 Dose: 500 mg Melatonin (Melatonin) 4.5 mg PO HS PRN PRN Reason: Insomnia Last Admin: 11/25/18 21:59 Dose: 4.5 mg Meloxicam (Mobic) 15 mg PO Q6HR PRN PRN Reason: Back pain Multivitamins (Multivit, Chewable Sf) 1 tab PO DAILY [facility] Last Admin: 11/26/18 08:14 Dose: 1 tab Nystatin (Mycostatin) 500,000 units SSW QID [facility] Last Admin: 11/26/18 12:48 Dose: 500,000 units Ondansetron HCl (Zofran) 4 mg IVP Q6H PRN PRN Reason: Nausea/Vomiting Last Admin: 11/22/18 22:12 Dose: 4 mg Phenol (Chloraseptic [place] 180 Ml Bot) 5 ml PO BIDPRN PRN PRN Reason: Sore Throat Prednisone (Prednisone) 40 mg PO QA-[facility] Stop: 11/27/18 08:01 Last Admin: 11/26/18 08:12 Dose: 40 mg Pyridoxine HCl (Vitamin B 6) 50 mg PO HSPRN PRN PRN Reason: Insomnia Sodium Chloride (Flush - Normal Saline) 10 ml IVF Q12HR PRN PRN Reason: Saline Flush Last Admin: 11/24/18 08:53 Dose: 10 ml Sterile Water (Bacteriostatic Water) 1 ml FS PRN PRN PRN Reason: RECONSTITUTION Trazodone HCl (Desyrel) 50 mg PO HS PRN PRN Reason: Insomnia Zinc Sulfate (Zinc Sulfate) 220 mg PO DAILY [facility] Last Admin: 11/26/18 08:16 Dose: 220 mg Zolpidem Tartrate (Ambien) 5 mg PO HSPRN PRN PRN Reason: Insomnia
[2018-11-26] MEDS: diphenhydrAMINE 25 MG CAP PO PRN ×2 (15:48→20:07)
--- NOTE | 2018-11-26 16:40 | PRG ---
DATE OF SERVICE: 11/26/2018 SERVICE: Pulmonary Medicine. INTERVAL HISTORY: The patient is doing great from respiratory standpoint. She continues to cough, but is much improved. She is not bringing up the thick sputum any longer. Denies any fevers or chills. No overnight events. She has been walking without difficulties. She is going to go home today, but she did not have a ride, so they are going to hold on to her for another day. PHYSICAL EXAMINATION: VITAL SIGNS: Afebrile, pulse 76, blood pressure 160/91, respirations 18, and saturation 93% on room air. GENERAL: The patient is awake and alert, in no apparent distress. LUNGS: Decent air entry without any prolonged expiratory phase. Rhonchi are present. No crackles or wheezing appreciated. HEART: Normal rate and regular. ABDOMEN: Soft, nontender, and nondistended. Bowel sounds are positive. MUSCULOSKELETAL: No cyanosis or clubbing. No pitting in the bilateral lower extremities. NEUROLOGIC: Grossly nonfocal. ASSESSMENT: 1. Acute hypoxic respiratory failure, resolved. 2. Acute bronchitis. 3. Community-acquired pneumonia, secondary to Haemophilus influenzae. 4. Urinary tract infection, secondary to Proteus mirabilis. 5. Mediastinal lymphadenopathy. DISCUSSION AND PLAN: She will continue to take her antibiotics for 7 days, and complete a 5-day course of steroids. At this point, she is stable for transition out of the hospital. She needs a repeat CT of the chest with contrast in the outpatient setting in 6 weeks to verify the infiltrate goes away, the mediastinal lymphadenopathy resolves. If not, additional diagnostic procedures will be indicated. I have encouraged her to follow up with me in the outpatient setting, so that we can pursue that imaging study. Job ID: [id number]
[2018-11-26] MEDS: Acetaminophen 325 MG TAB PO PRN (20:07)
[2018-11-26] MEDS: Melatonin 3 MG TAB PO PRN (20:07)
--- NOTE | 2018-11-26 22:07 | EKG ---
Test Reason : EMERGENCY EXAM Blood Pressure : / mmHG Vent. Rate : 057 BPM Atrial Rate : 057 BPM P-R Int : 162 ms QRS Dur : 094 ms QT Int : 600 ms P-R-T Axes : 046 -20 186 degrees QTc Int : 584 ms Sinus bradycardia Left ventricular hypertrophy with repolarization abnormality Anteroseptal infarct , age undetermined Prolonged QT Abnormal ECG Confirmed by KATE KIRKPATRICK ([id number]), clinical editor YARA MENA ([id number]) on 11/26/2018 10:07:06 PM Referred By: Confirmed By:KATE KIRKPATRICK
[2018-11-27] MEDS: cefTRIAXone\\ROCEPHIN 1 GM in Sodium Chloride 0.9% 100 ML IVPB SCH (05:29)
[2018-11-27 07:41] VITALS: BP 146/83; TEMP 98.2
[2018-11-27] MEDS: Multivit, Chewable SF 1 TAB PO SCH (09:19)
[2018-11-27] MEDS: Zinc Sulfate 220 MG CAP PO SCH (09:19)
[2018-11-27] MEDS: guaiFENesin ER 600 MG TAB PO SCH (09:20)
[2018-11-27] MEDS: Carvedilol 6.25 MG TAB PO SCH (09:20)
[2018-11-27] MEDS: FLUoxetine HCl 20 MG CAP PO SCH (09:20)
[2018-11-27] MEDS: predniSONE 20 MG TAB PO SCH (09:20)
[2018-11-27] MEDS: Aspirin 81 mg Enteric Coated Tablet PO SCH (09:21)
[2018-11-27] MEDS: Nystatin 500,000 UNITS/5 ML UDCUP SSW SCH ×2 (09:21→13:58)
[2018-11-27] MEDS: Enoxaparin Sodium 40 MG/0.4 ML SYRINGE SC SCH (09:21)
[2018-11-27] MEDS: Dexamethasone 0.5 MG/5 ML UDCUP PO SCH (09:21)
[2018-11-27] MEDS: Magnesium Oxide 250 MG TAB PO SCH (09:29)
[2018-11-27] MEDS: Fluconazole 100 MG TAB PO SCH (09:29)
[2018-11-27] MEDS: Lidocaine Viscous Sol 2% 15 ml UD Cup SSW SCH ×2 (09:30→13:58)
[2018-11-27] MEDS: HYDROcodone/Acetaminophen 5/325 mg Tablet PO PRN (09:37)
--- NOTE | 2018-11-27 13:14 | PRG ---
DATE OF SERVICE: SERVICE: Pulmonary Medicine. INTERVAL HISTORY: The patient is doing really well from a respiratory standpoint. Breathing comfortably. Her cough is much improved. She did not have a coughing fit for an extended period of time last night. She feels much more refreshed. Otherwise, there has been no change to her condition. PHYSICAL EXAMINATION: VITAL SIGNS: Afebrile, pulse 75, blood pressure 146/83, respirations 18, saturation 95% on room air. GENERAL: The patient is awake and alert, in no apparent distress. LUNGS: Decent air entry with no prolonged expiratory phase. Rhonchi are present, but minimal. HEART: Normal rate, regular. ABDOMEN: Soft, nontender, nondistended. Bowel sounds are positive. MUSCULOSKELETAL: No cyanosis or clubbing. No pitting in the bilateral lower extremities. NEUROLOGIC: Grossly nonfocal. ASSESSMENT: 1. Acute hypoxic respiratory failure, resolved. 2. Acute bronchitis. 3. Community acquired pneumonia secondary to haemophilus influenzae. 4. Urinary tract infection secondary to Proteus. 5. Mediastinal lymphadenopathy. DISCUSSION AND PLAN: The patient is going to have a repeat CT scan of the chest with contrast in the outpatient setting to verify the infiltrate goes away, and re-evaluate the mediastinal lymphadenopathy. If it does not, additional diagnostic procedures will be indicated. I will have her follow up with me in the outpatient setting to look into this thing. She remains stable for transition out of the hospital. If she is in-house, I will continue to follow. Job ID: [id number]
--- NOTE | 2018-11-27 17:34 | DIS ---
DATE OF ADMISSION: 11/20/2018 DATE OF DISCHARGE: 11/27/2018 CONDITION: At the time of discharge, stable and improved. DISCHARGE DISPOSITION: Home. PRIMARY CARE PHYSICIAN: Ulises Martinez. DISCHARGE DIAGNOSES: 1. Community-acquired pneumonia. 2. Urinary tract infection. 3. History of aortic stenosis. 4. Hypertension. DISCHARGE MEDICATIONS: Resume home medications. New medications; dexamethasone 0.5 mg swish and spit three times a day p.r.n., viscous lidocaine q.i.d. p.r.n., Tessalon p.r.n. Resume home medications as follows; gabapentin 1 tablet every 6 hours, Coreg 12.5 p.o. b.i.d., fluoxetine 1 tablet p.o. b.i.d., otherwise multivitamins. The patient has finished the course of steroids and antibiotics in the hospital by IV route. IN-HOUSE CONSULTATIONS: 1. Pulmonary Medicine, Dr. Barclay. 2. Cardiology, Dr. Hodgson and Dr. Jefferson. PROCEDURES IN THE HOSPITAL: 1. CT angio of the thorax on 11/20/2018, which shows extensive bilateral perihilar parenchymal opacities, some of which are reticulonodular as well as there is a zenon consolidation, suspicious for extensive bronchopneumonia. Extensive mediastinal and hilar lymphadenopathy was also seen. No pulmonary embolism. HISTORY OF PRESENTING ILLNESS: Ms. Fernandez is a 68-year-old female with past medical history of hypertension and dyslipidemia, who presented to the emergency room with complaints of fever, chills, and cough. She was found to have leukocytosis and a CT scan done in the emergency room was negative for PE, but was showing extensive bilateral pneumonia and hilar and mediastinal lymphadenopathy. She was hemodynamically stable in the emergency room, but had a fever of 100 and oxygen saturation 98% on 2 L nasal cannula. She was started on appropriate IV antibiotics and was admitted to the hospital for further evaluation and care. Please see admission history and physical dictated by Dr. Hilliard on 11/20/2018 for further details. HOSPITAL COURSE: The patient was seen by Cardiology when BNP was checked and it was found to be elevated to 1543. She has had a recent cardiac catheterization in the hospital, which showed 80% of stenosis of the first diagonal branch, which was too small for intervention. Cardiology saw the patient. She also had an echo done earlier this month during her last hospitalization on November 11, 2018, which showed preserved ejection fraction and moderate aortic wall stenosis. Cardiology started her on beta-ester and HONEY inhibitor and followed the patient along, she had improvement in her symptoms, eventually signed off. Pulmonary Medicine was also consulted because of severity of pneumonia and mediastinal and hilar adenopathy and slow improvement in symptoms. Dr. Barclay saw the patient and agreed with antibiotics as started. He did add Diflucan. The patient finished the Diflucan, Rocephin, steroids before her discharge. Dr. Barclay recommends outpatient followup with repeat CT scan to see the resolution of the adenopathy in the mediastinum and the hilar region. The patient's urine culture showed a positive Proteus mirabilis and her respiratory culture showed Haemophilus influenzae as well as Joan. She was treated with appropriate IV antibiotics for all of this as well as antifungal. As of this morning, she has been cleared for discharge from Cardiology and Pulmonary perspective. She was seen and examined prior to discharge. She still feels a little bit weak, but is doing much better. Discharge plan was discussed with Fernandez, who verbalized understanding. She will follow up with primary care physician in 1 to [address] Barclay in 3 to [address] scan. New medication prescriptions were provided. PHYSICAL EXAMINATION: Her physical examination this morning shows; VITAL SIGNS: Temperature 98.2, pulse of 75, blood pressure 146/83. GENERAL: No acute distress. CHEST: Clear to auscultation bilaterally. HEART: Rate and rhythm are regular. TOTAL TIME SPENT: 32 minutes. Job ID: [id number]
--- NOTE | 2018-11-28 18:11 | PQF ---
SHANTI EVERETT RICHA MD [id number] [facility]-259 [id number] CLINICAL DOCUMENTATION CLARIFICATION FORM: POST DISCHARGE Please exercise your independent, professional judgment in responding to the clarification form. Clinical indicators are provided on the bottom of this form for your review Please check appropriate box(s): HEART FAILURE: A. TYPE: [ ] Systolic / HFrEF [ ] Diastolic / HFpEF [ ] Combined Systolic / Diastolic B. ACUITY [ ] Acute [ ] Acute on Chronic [ ] Chronic [ X] Other diagnosis --NO CHF On My Assessment [ ] Unable to determine CLINICAL INDICATORS - SIGNS / SYMPTOMS / LABS 11/20 INPT ADMIT ORDER, "NEW ONSET CHF" 11/20 CONSULT, "INCREASING SHORTNESS OF BREATH AND COUGH, WHICH IS FELT TO BE POSSIBLY DECOMPENSATED CONGESTIVE HEART FAILURE."...."LEFT VENTRICULAR HYPERTROPHY" 11/20 ARATA CONSULT, A&P, "1. ACUTE ON DIASTOLIC DYSFUNCTION" 11/20 LAB,ELEVATED BNP OF 1543 11/22 PROG NOTE SOPHIE [place], CV STABLE, WILL SIGN OFF RISKS: 11/20 H&P HTN AORTIC VALVE STENOSIS CAD HX SMOKING TREATMENTS: 11/20 Gill [facility] CONSULTS 11/20 02 PER NASAL CANNULA (This form is maintained as a part of the permanent medical record) 2014 [employer] All Rights Reserved Sydnie [email or web address] [phone] MTDD
== END 2018-11-27 14:57 | disposition home or self-care (01) | DRG 193 ==
LOC: ERS 22:56 → 2NO 11-20 03:19 → T4-B 11-24 18:40
PROVIDERS: ADMIT Internal Medicine; ATTEND Internal Medicine
DX: J14 Pneumonia due to Hemophilus influenzae (principal); J96.01 Acute respiratory failure with hypoxia; N39.0 Urinary tract infection, site not specified; E87.6 Hypokalemia; I35.0 Nonrheumatic aortic (valve) stenosis; I25.10 Atherosclerotic heart disease of native coronary artery without angina pectoris; B96.4 Proteus (mirabilis) (morganii) as the cause of diseases classified elsewhere; R59.0 Localized enlarged lymph nodes; B37.9 Candidiasis, unspecified; E78.5 Hyperlipidemia, unspecified; F41.8 Other specified anxiety disorders; I10 Essential (primary) hypertension; Z87.891 Personal history of nicotine dependence; Z98.84 Bariatric surgery status; Z88.5 Allergy status to narcotic agent
CPT/HCPCS: 36415; 71045; 71275; 80048; 80053; 81003; 81015; 82550; 82607; 83690; 83735; 83880; 84484; 85025; 85379; 87040; 87070; 87077; 87086; 87116; 87186; 87205; 87206; 87804; 87899; 93005; 94640; 96365; 96375; J0360; J0456; J0692; J0696; J1650; J1940; J2405; J2550; J2920; J3370; J7050; J7620; Q0163; Q9966

== ENCOUNTER 2019-01-18 12:10 | Outpatient (CLI) | payer MEDICARE ==
[~2019-01-18 12:10] MED LIST: ISOVUE-370 76%-LOCM 1 ML ONE
[2019-01-18 13:48] LABS: Estimated GFR-MDRD - POC Greater than 90
--- NOTE | 2019-01-18 14:44 | CT ---
CT OF THE THORAX WITH IV CONTRAST: INDICATION: History of pneumonia and cervical cancer. COMPARISON: Prior CT of the thorax dated 11/20/2018. CONTRAST: 70 cc of Isovue 170. FINDINGS: There has been significant improvement in the scattered areas of reticulonodular airspace opacity and zenon consolidation involving both lungs. Patchy areas of ground-glass opacities, some of which are more peribronchiolar in distribution are now present. There are some patchy areas of air trapping w ithin the right upper lobe and right lower lobe as well as portions of the lingula and left lower lob e. The hilar and mediastinal lymphadenopathy has slightly improved. Subcarinal lymph node previously se en measured 1.6 cm and now measures 1.4 cm. Pretracheal lymph node now measures 1.5 cm which is rela tively stable to the prior exam. Hilar lymph nodes have also decreased in prominence There are prom inent coronary artery and thoracic aortic calcifications. There are bilateral breast implants. Ther e is a small pericardial effusion that is stable to the prior exam. Mitral annular calcifications ar e similar appearing. There is postsurgical change of a gastric bypass. Adrenal glands appear within normal limits. The g allbladder is surgically absent. The visualized aspects of the liver appear within normal limits. A mild amount of retained stool is seen within the visualized colon. There is scattered degenerative and osteoarthritic change. No definite acute osseous abnormality is evident. IMPRESSION: 1. Significant improvement in bilateral parenchymal opacity consistent with improvement in the patie nt's pneumonia. There are patchy areas of ground-glass opacity with areas of air trapping that likel y reflect some sequelae of some residual peripheral airways disease such as a bronchiolitis. 2. Improvement in the extent of the mediastinal and hilar lymphadenopathy. Slightly enlarged lymph nodes remain within the mediastinum and hilar regions. As a conservative measure, a followup examina tion in 3-6 months may be helpful to document stability to resolution. 3. Other stable chronic findings as above. POS: TPC
== END 2019-01-18 12:11 | disposition home or self-care (01) ==
LOC: BICCT 12:10
PROVIDERS: ATTEND Internal Medicine
DX: R91.8 Other nonspecific abnormal finding of lung field (principal); R59.1 Generalized enlarged lymph nodes; I25.10 Atherosclerotic heart disease of native coronary artery without angina pectoris; I70.0 Atherosclerosis of aorta; Z98.82 Breast implant status; I31.3 Pericardial effusion (noninflammatory); M19.90 Unspecified osteoarthritis, unspecified site; R19.5 Other fecal abnormalities; Z90.49 Acquired absence of other specified parts of digestive tract
CPT/HCPCS: 71260; 82565; Q9966

== ENCOUNTER 2019-02-14 12:56 | Outpatient (CLI) | payer MEDICARE ==
--- NOTE | 2019-02-14 14:14 | RAD ---
CHEST TWO VIEW: 02/14/19 HISTORY: Dyspnea. COMPARISON: CT chest 01/18/19. FINDINGS: Heart size is enlarged. The pulmonary arteries are enlarged. Mild pulmonary venous congestion. No pne umothorax. No significant effusion. Moderate vascular calcifications. IMPRESSION: 1. Cardiomegaly with mild pulmonary venous congestion. 2. Dilated pulmonary arteries suggesting pulmonary arterial hypertension. POS: TPC
== END 2019-02-14 12:57 | disposition home or self-care (01) ==
LOC: RAD 12:56
PROVIDERS: ATTEND Internal Medicine
DX: R06.00 Dyspnea, unspecified (principal); I51.7 Cardiomegaly; I87.8 Other specified disorders of veins; I28.1 Aneurysm of pulmonary artery
CPT/HCPCS: 71046

== ENCOUNTER 2019-04-11 09:43 | Outpatient (CLI) | payer MEDICARE ==
--- NOTE | 2019-04-14 12:14 | PFT ---
PATIENT HISTORY: HEIGHT: 65 IN WEIGHT: 144 SMOKER: NO HOW LON YRS PACKS PER DAY: .5 PRODUCTIVE COUGH: LUNG DISEASE: PHYSICIAN INTERPRETATION FINAL REPORT: PFT data: FVC 2.58 (83%), FEV1 2.13 (90%), FEV1/FVC 0.82. RV 1.32 (65%), TLC 3.99 (78%). DIFFUSION 13.64 (60%) The FEV1 and FVC fall with in the normal limits. The Residual Volume and Total Lung Capacity are mildly impaired. Diffusion Capacity is mildly impaired. IMPRESSION: Overall, these pulmonary function studies are currently consistent with isolated diffusion capacity with low normal spirometry values. There is no significant improvement following the administration of a bronchodilator. Clinical correlation for pulmonary vascular disorder or early interstitial processes should be considered. Analytical Research Chemist: PACO Bucket Hooker: PACO FRIEDMAN
== END 2019-04-11 09:44 | disposition home or self-care (01) ==
LOC: CP 09:43
PROVIDERS: ATTEND Internal Medicine
DX: J40 Bronchitis, not specified as acute or chronic (principal)
CPT/HCPCS: 94060; 94727; 94729

== ENCOUNTER 2019-06-22 11:24 | Emergency (ER) | payer MEDICARE ==
--- NOTE | 2019-06-22 11:49 | RAD ---
XR Foot Lt 3 View STANDARD HISTORY: Injury, left foot pain FINDINGS: A toe ring obscures bony detail of the middle phalanx of the second toe. No fracture or dislocation i s otherwise identified. There is a plantar calcaneal spur. There are degenerative changes.
== END 2019-06-22 12:15 | disposition home or self-care (01) ==
LOC: ERS 11:24
DX: M19.072 Primary osteoarthritis, left ankle and foot (principal); I10 Essential (primary) hypertension; Z87.891 Personal history of nicotine dependence; Z79.891 Long term (current) use of opiate analgesic